=== PATIENT | female | born 1950 | race Caucasian/White ===

== ENCOUNTER → 2017-07-29 | Outpatient (CLI) | payer MEDICARE ==
[~2017-07-29] MED LIST: ADVAIR; ALBUTEROL; DARVOCET-N 1001 EAC1 PO; DILANTIN 100MG100 MG PO; ELAVIL25 MG GT; FUROSEMIDE; GLYBURIDE; LANTUS SQ; METFORMIN; NITRO DUR TOP; POTASSIUM PO; THORAZINE PO; TOVIAZ; Z GLUCOTROL PO; Z IMITREX PO; Z SEROQUEL PO; Z STARLIX PO; Z.0.CARISOPRODOL350 PO; Z.0.LASIX40 MG PO; Z.0.LISINOPRIL2.5 MG PO; Z.0.LOMOTIL TABLET1 PO; Z.0.NAPROXEN500 MG PO; Z.0.NEURONTIN300 MG PO; Z.0.PROTONIX40 MG PO; Z.0.VESICARE10 MG PO; Z.1.COLESTIPOL HCL1 PO
== END ==
LOC: CARD 10:19
PROVIDERS: ATTEND Family Medicine Adult Medicine
DX: I73.89 Other specified peripheral vascular diseases (principal)
CPT/HCPCS: 93922; 93925

== ENCOUNTER 2017-08-15 10:15 | Outpatient (RCR) | payer MEDICARE, OTHER ==
[~2017-08-15 10:15] MED LIST changes: +HYDROCODONE/APAP 5MG-325MG TAB ONE; +LIDOCAINE VISC 2% SOLN 15 ML UDC ONE; +LIDOCAINE/PRILOCAINE 2.5-2.5% KIT ONE
== END 2017-08-22 ==
LOC: WCC 10:15
PROVIDERS: ATTEND Family Medicine Adult Medicine
DX: E11.65 Type 2 diabetes mellitus with hyperglycemia (principal); S51.002A Unspecified open wound of left elbow, initial encounter; S51.802A Unspecified open wound of left forearm, initial encounter; S81.002A Unspecified open wound, left knee, initial encounter; S81.802A Unspecified open wound, left lower leg, initial encounter; S91.002A Unspecified open wound, left ankle, initial encounter; S61.401A Unspecified open wound of right hand, initial encounter; G90.09 Other idiopathic peripheral autonomic neuropathy; I73.89 Other specified peripheral vascular diseases; I10 Essential (primary) hypertension; R23.8 Other skin changes; E66.3 Overweight; F41.9 Anxiety disorder, unspecified; G47.00 Insomnia, unspecified; J44.9 Chronic obstructive pulmonary disease, unspecified; K46.9 Unspecified abdominal hernia without obstruction or gangrene; S80.869A Insect bite (nonvenomous), unspecified lower leg, initial encounter; Y92.099 Unspecified place in other non-institutional residence as the place of occurrence of the external cause

== ENCOUNTER 2017-09-10 10:06 | Outpatient (RCR) | payer MEDICARE ==
[~2017-09-10 10:06] MED LIST changes: -HYDROCODONE/APAP 5MG-325MG TAB ONE; -LIDOCAINE VISC 2% SOLN 15 ML UDC ONE; -LIDOCAINE/PRILOCAINE 2.5-2.5% KIT ONE
[2017-09-10] MEDS ORDERED: LIDOCAINE VISC 2% SOLN 15 ML UDC ONE (16:29)
== END 2017-09-21 ==
LOC: WCC 10:06
PROVIDERS: ATTEND Family Medicine Adult Medicine
DX: E11.65 Type 2 diabetes mellitus with hyperglycemia (principal); S51.002A Unspecified open wound of left elbow, initial encounter; S51.802A Unspecified open wound of left forearm, initial encounter; S81.002A Unspecified open wound, left knee, initial encounter; S81.802A Unspecified open wound, left lower leg, initial encounter; S91.002A Unspecified open wound, left ankle, initial encounter; R23.8 Other skin changes; S80.869A Insect bite (nonvenomous), unspecified lower leg, initial encounter; G90.09 Other idiopathic peripheral autonomic neuropathy; I10 Essential (primary) hypertension; I73.89 Other specified peripheral vascular diseases; E66.3 Overweight; F41.9 Anxiety disorder, unspecified; G47.00 Insomnia, unspecified; J44.9 Chronic obstructive pulmonary disease, unspecified; K46.9 Unspecified abdominal hernia without obstruction or gangrene; Y92.099 Unspecified place in other non-institutional residence as the place of occurrence of the external cause

== ENCOUNTER 2017-09-15 16:24 | Emergency (ER) | payer MEDICARE ==
[~2017-09-15] VITALS: Ht 160 cm; Wt 81.6 kg
[2017-09-15] MEDS ORDERED: IPRATROPIUM BROMIDE 0.02% 2.5 ML NEB NEB STA (16:28)
[2017-09-15] MEDS ORDERED: CLINDAMYCIN PHOS 900MG/ D5W 50 50 ML IV ONE (16:30)
[2017-09-15] MEDS ORDERED: ALBUTEROL SULF 0.083% NEB SOLN 3 ML NEB NEB ONE (17:00)
[2017-09-15] MEDS ORDERED: HYDROCODONE/APAP 10MG-325MG TAB PO ONE (17:00)
[2017-09-15] MEDS ORDERED: ONDANSETRON HCL INJ 2 MG/ML VIAL IV ONE (17:00)
--- NOTE | 2017-09-15 17:12 | Diagnostic Imaging Report ---
Examination: Single AP view of the chest. COMPARISON: 12/03/2012. INDICATION: Pain. Leg wound DISCUSSION: Lines/tubes: None. Lungs: The lungs are well inflated and clear. There is no evidence of pneumonia or pulmonary edema. Pleura: There is no pleural effusion or pneumothorax. Heart and mediastinum: Cardiomediastinal silhouette is unremarkable. Pulmonary vasculature is normal. Bones and soft tissues: No acute bony abnormalities. Degenerative changes in the thoracic spine. IMPRESSION: 1. No acute cardiopulmonary abnormalities. Signed by: Dr. Pasquale Dunbar M.D. on 09/15/2017 5:09 PM
[2017-09-15 17:37] LABS: BASOPHILS # (AUTO) 0.1 (0.0-0.1); BASOPHILS % 0.5 % (0.0-1.0); EOSINOPHILS # (AUTO) 0.1 (0.0-0.4); EOSINOPHILS % 0.4 % (0.0-6.0); HEMATOCRIT 39.2 % (34.2-44.1); HEMOGLOBIN 12.7 g/dL (12.0-16.0); LYMPHOCYTES % 17.4 % (18.0-39.1); MEAN CORPUSCULAR HEMOGLOBIN 30.9 pg (28-32); MEAN CORPUSCULAR HGB CONC 32.4 g/dL (31-35); MEAN CORPUSCULAR VOLUME 95.4 fL (81-99); MONOCYTES % 8.4 % (4.4-11.3); NEUTROPHILS # (AUTO) 8.2 (2.1-6.9); NEUTROPHILS % 72.1 % (38.7-80.0); PLATELET COUNT 260 x10e3/uL (140-360); RED BLOOD COUNT 4.11 x10e6/uL (3.6-5.1); RED CELL DISTRIBUTION WIDTH 14.2 % (11.7-14.4)
[2017-09-15 17:58] LABS: ALANINE AMINOTRANSFERASE 16 IU/L (0-55); ALBUMIN 3.7 g/dL (3.5-5.0); ALBUMIN/GLOBULIN RATIO 1.4 (0.8-2.0); ALKALINE PHOSPHATASE 49 IU/L (40-150); ANION GAP 16.4 mmol/L (8-16); BLOOD UREA NITROGEN 27 mg/dL (7-26); BUN/CREATININE RATIO 35 (6-25); CALCIUM 9.7 mg/dL (8.4-10.2); CARBON DIOXIDE 22 mmol/L (22-29); CHLORIDE 104 mmol/L (98-107); CREATININE, SERUM 0.78 mg/dL (0.57-1.11); EST GLOMERULAR FILTRATION RATE > 60 ML/MIN (60-); GLUCOSE 132 mg/dL (74-118); POTASSIUM 4.4 mmol/L (3.5-5.1); SODIUM 138 mmol/L (136-145)
[2017-09-15 18:36] LABS: BILIRUBIN,URINE NEGATIVE (NEGATIVE); CLARITY,URINE CLEAR (CLEAR); COLOR,URINE YELLOW (YELLOW); KETONES,URINE NEGATIVE (NEGATIVE); LEUKOCYTE ESTERASE ,URINE NEGATIVE (NEGATIVE); NITRITE,URINE NEGATIVE (NEGATIVE); PROTEIN,URINE DIPSTICK NEGATIVE (NEGATIVE); URINE UROBILINOGEN 0.2 mg/dL (0.2 - 1)
[2017-09-15 18:39] VITALS: BP 134/71
[2017-09-15 18:50] LABS: BACTERIA,URINE FEW /HPF; EPITHELIAL CELLS,URINE RARE /LPF; WBC,URINE (MAN) 0-5 /HPF (0-5)
== END 2017-09-15 18:30 | disposition home or self-care (01) ==
LOC: ER 16:26
DX: M79.662 Pain in left lower leg (principal); L03.116 Cellulitis of left lower limb; R26.2 Difficulty in walking, not elsewhere classified; E11.9 Type 2 diabetes mellitus without complications; J44.9 Chronic obstructive pulmonary disease, unspecified
CPT/HCPCS: 36415; 71045; 80053; 81001; 83605; 85025; 87040; 87086; 87186; 93005; 94640; 99284; J2405

== ENCOUNTER 2017-10-15 10:33 | Outpatient (RCR) | payer MEDICARE ==
[~2017-10-15 10:33] MED LIST changes: +LIDOCAINE VISC 2% SOLN 15 ML UDC ONE; +MINERAL OIL/PETROLAT/GLYCERI 6OZ BTL ONE
[2017-10-15] MEDS ORDERED: LIDOCAINE VISC 2% SOLN 15 ML UDC ONE (12:16)
== END 2017-10-22 ==
LOC: WCC 10:33
PROVIDERS: ATTEND Family Medicine Adult Medicine
DX: E11.65 Type 2 diabetes mellitus with hyperglycemia (principal); S81.002A Unspecified open wound, left knee, initial encounter; S81.802A Unspecified open wound, left lower leg, initial encounter; S80.869A Insect bite (nonvenomous), unspecified lower leg, initial encounter; G90.09 Other idiopathic peripheral autonomic neuropathy; I73.89 Other specified peripheral vascular diseases; R23.8 Other skin changes; I10 Essential (primary) hypertension; E66.3 Overweight; F41.9 Anxiety disorder, unspecified; G47.00 Insomnia, unspecified; J44.9 Chronic obstructive pulmonary disease, unspecified; K46.9 Unspecified abdominal hernia without obstruction or gangrene; Y92.099 Unspecified place in other non-institutional residence as the place of occurrence of the external cause
CPT/HCPCS: 36415; 82948

== ENCOUNTER → 2017-10-28 | Outpatient (CLI) | payer MEDICARE ==
[~2017-10-28] MED LIST changes: -LIDOCAINE VISC 2% SOLN 15 ML UDC ONE; -MINERAL OIL/PETROLAT/GLYCERI 6OZ BTL ONE
--- NOTE | 2017-10-28 11:38 | Diagnostic Imaging Report ---
PROCEDURE:X-RAY PELVIS, AP VIEW COMPARISON:None. INDICATIONS:NEUROMUSCULAR DYSFUNTION OF BLADDER FINDINGS: There are no fractures, dislocations, lytic or blastic lesions. Stimulator device overlying left lower quadrant with distal lead overlying left sacrum. Degenerative changes of hip and SI joints. Right lower quadrant calcified densities are likely soft tissue granulomas. CONCLUSION: No acute fracture or dislocation of the pelvis. Dictated by: Wilfrid Chapman M.D. on 10/28/2017 at 11:44 Electronically approved by: Wilfrid Chapman M.D. on 10/28/2017 at 11:44
--- NOTE | 2017-10-28 11:58 | Diagnostic Imaging Report ---
PROCEDURE:SACRUM X-RAY INDICATION:Neuromuscular dysfunction of bladder. COMPARISON:None. FINDINGS: Generalized demineralization limits evaluation. No definite evidence of acute displaced fracture of the sacrum. Mild degenerative changes of the SI joints. L5-S1 facet arthropathy. Stimulator device overlying left lower quadrant with tip overlying left pelvis. CONCLUSION: No evidence of acute displaced sacral fracture. Dictated by: Wilfrid Chapman M.D. on 10/28/2017 at 12:03 Electronically approved by: Wilfrid Chapman M.D. on 10/28/2017 at 12:03
== END ==
LOC: RAD 10:53
PROVIDERS: ATTEND Urology
DX: N31.9 Neuromuscular dysfunction of bladder, unspecified (principal)
CPT/HCPCS: 72170; 72220

== ENCOUNTER 2017-11-14 12:48 | Outpatient (RCR) | payer MEDICARE ==
[~2017-11-14 12:48] MED LIST changes: +LIDOCAINE/PRILOCAINE 2.5-2.5% KIT ONE
[2017-11-14] MEDS ORDERED: LIDOCAINE/PRILOCAINE 2.5-2.5% KIT ONE (18:33)
== END 2017-11-22 ==
LOC: WCC 12:48
PROVIDERS: ATTEND Family Medicine Adult Medicine
DX: E11.65 Type 2 diabetes mellitus with hyperglycemia (principal); S80.812A Abrasion, left lower leg, initial encounter; S80.869A Insect bite (nonvenomous), unspecified lower leg, initial encounter; G90.09 Other idiopathic peripheral autonomic neuropathy; I73.89 Other specified peripheral vascular diseases; R23.8 Other skin changes; I10 Essential (primary) hypertension; E66.3 Overweight; F41.9 Anxiety disorder, unspecified; G47.00 Insomnia, unspecified; J44.9 Chronic obstructive pulmonary disease, unspecified; K46.9 Unspecified abdominal hernia without obstruction or gangrene; Y92.099 Unspecified place in other non-institutional residence as the place of occurrence of the external cause

== ENCOUNTER 2017-12-19 10:21 | Outpatient (RCR) | payer MEDICARE ==
[~2017-12-19 10:21] MED LIST changes: -LIDOCAINE/PRILOCAINE 2.5-2.5% KIT ONE
[2018-02-05] MEDS ORDERED: DIVALPROEX SOD250 MG PO (11:13)
[2018-02-05] MEDS ORDERED: BACTRIM DS TAB1 EACH PO (11:14)
[2018-02-05] MEDS ORDERED: QUETIAPINE FUM100 MG PO (11:14)
[2018-02-05] MEDS ORDERED: NATEGLINIDE60 MG PO (11:15)
[2018-02-05] MEDS ORDERED: METOPROLOL SUCC25 MG PO (11:15)
[2018-02-05] MEDS ORDERED: AMBIEN5 MG PO (11:16)
[2018-02-05] MEDS ORDERED: HUMALOG100 UNIT/3 SC (11:17)
[2018-02-05] MEDS ORDERED: TRAZODONE HCL100 MG PO (11:17)
[2018-02-05] MEDS ORDERED: PRAVASTATIN SOD40 MG PO (11:20)
[2018-02-05] MEDS ORDERED: breo INH (11:25)
== END 2017-12-22 ==
LOC: WCC 10:21
PROVIDERS: ATTEND Family Medicine Adult Medicine
DX: E11.65 Type 2 diabetes mellitus with hyperglycemia (principal); S80.812A Abrasion, left lower leg, initial encounter; S80.822A Blister (nonthermal), left lower leg, initial encounter; E66.3 Overweight; F41.9 Anxiety disorder, unspecified; G47.00 Insomnia, unspecified; G90.09 Other idiopathic peripheral autonomic neuropathy; I10 Essential (primary) hypertension; I73.89 Other specified peripheral vascular diseases; J44.9 Chronic obstructive pulmonary disease, unspecified; K46.9 Unspecified abdominal hernia without obstruction or gangrene; R23.8 Other skin changes; S80.869A Insect bite (nonvenomous), unspecified lower leg, initial encounter; Y92.099 Unspecified place in other non-institutional residence as the place of occurrence of the external cause

== ENCOUNTER → 2018-02-07 | Day surgery (SDC) | payer MEDICARE ==
[2018-02-05 11:43] LABS: BASOPHILS # (AUTO) 0.1 (0.0-0.1); BASOPHILS % 0.6 % (0.0-1.0); EOSINOPHILS % 0.3 % (0.0-6.0); HEMATOCRIT 44.3 % (34.2-44.1); HEMOGLOBIN 14.4 g/dL (12.0-16.0); LYMPHOCYTES # (AUTO) 2.5 (1.0-3.2); LYMPHOCYTES % 20.8 % (18.0-39.1); MEAN CORPUSCULAR HEMOGLOBIN 30.9 pg (28-32); MEAN CORPUSCULAR HGB CONC 32.5 g/dL (31-35); MEAN CORPUSCULAR VOLUME 95.1 fL (81-99); MONOCYTES # (AUTO) 0.9 (0.2-0.8); MONOCYTES % 7.9 % (4.4-11.3); NEUTROPHILS # (AUTO) 8.1 (2.1-6.9); PLATELET COUNT 259 x10e3/uL (140-360); RED BLOOD COUNT 4.66 x10e6/uL (3.6-5.1); RED CELL DISTRIBUTION WIDTH 12.8 % (11.7-14.4)
[2018-02-05 12:03] LABS: BLOOD UREA NITROGEN 16 mg/dL (7-26); BUN/CREATININE RATIO 22 (6-25); CALCIUM 9.4 mg/dL (8.4-10.2); CARBON DIOXIDE 20 mmol/L (22-29); CHLORIDE 100 mmol/L (98-107); CREATININE, SERUM 0.73 mg/dL (0.57-1.11); EST GLOMERULAR FILTRATION RATE > 60 ML/MIN (60-); GLUCOSE 150 mg/dL (74-118); SODIUM 137 mmol/L (136-145)
--- NOTE | 2018-02-05 12:09 | Diagnostic Imaging Report ---
EXAMINATION: PA and lateral views of the chest. COMPARISON: 09/15/2017 CLINICAL HISTORY: Preoperative study for urologic procedure DISCUSSION: The lungs remain well-inflated. No focal airspace consolidation, pleural effusion, or pneumothorax. Cardiomediastinal contour and pulmonary vasculature are within normal limits except and of atherosclerotic calcification of the thoracic aorta. Normal heart size. No overt pulmonary edema. No acute osseous abnormality. IMPRESSION: No acute cardiopulmonary abnormalities. Signed by: Dr. Jay Jay Burnham M.D. on 02/05/2018 12:05 PM
[~2018-02-07] MED LIST changes: +AMBIEN5 MG PO; +BACTRIM DS TAB1 EACH PO; +BUPIVACAINE 0.5%/EPI 30 ML SDV INJ ONE; +CLINDAMYCIN PHOS 900MG/ 50ML 50 ML IV ONE; +DEXAMETHASONE SOD PHOS INJ 4 MG/ML VIAL ONE; +DIVALPROEX SOD250 MG PO; +FENTANYL CITRATE/PF 100MCG/2 ML INJ ONE; +HUMALOG100 UNIT/3 SC; +LIDOCAINE 2%/ EPINEPHRINE 20ML MDV ONE; +LIDOCAINE HCL 2% LOCAL INJ 5 ML SDV VIAL INJ ONE; +METOPROLOL SUCC25 MG PO; +MIDAZOLAM HCL 2 MG/2 ML VIAL ONE; +NATEGLINIDE60 MG PO; +ONDANSETRON HCL INJ 2 MG/ML VIAL ONE; +PIPER-TAZ 3.375 GM 50 ML ONE; +PRAVASTATIN SOD40 MG PO; +PROPOFOL IV EMULSION 10 MG/ML 20 ML VIAL ONE; +QUETIAPINE FUM100 MG PO; +SEVOFLURANE INHAL SOLN 250 ML PEN BTL ONE; +TRAZODONE HCL100 MG PO; +breo INH
--- OUTSIDE RECORDS SUMMARY | 2018-02-07 08:50 | XMS REPORT | Clinical Summary ---
Author Author [facility] Address Unknown Phone Unavailable Care Team Providers Care Service Or Work Dispatcher Name Role Phone Asked, No Pcp PCP Unavailable Allergies Comments Active Allergy Reactions Severity Noted Date Penicillins 10/01/2016 Medications No known medications Active Problems Not on file Social History Date Tobacco Use Types Packs/Day Years Used Never Smoker Alcohol Use Drinks/Week oz/Week Comments No Sex Assigned at Date Recorded Not on file Industry Job Start Date Occupation Not on file Not on file Not on file Travel End Travel History Travel Start No recent travel history available. Last Filed Vital Signs Not on file Plan of Treatment Not on file Results Not on fileafter 02/06/2017 Insurance Payer Benefit Subscriber ID Type Phone Address Plan / Group [employer] C[employer] xxxxxxxxx H[employer] NG O MCR ADV Advance Directives Patient has advance care planning documents on file. For more information, wayne combs contact: Montrell Limon [address] [place] [address]
--- OUTSIDE RECORDS SUMMARY | 2018-02-07 08:50 | XMS REPORT ---
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 Allergies, Adverse Reactions, Alerts This patient has no known allergies or adverse reactions. Medications This patient has no known medications. Results Test Description Test Time Test Comments Text Results Atomic Results Result Comments CHEST 2 VIEWS 2018-02-05 12:04:00 [facility] [address] [address] Patient Name: HIRAL WILSON MR #: [id number] : 1950 Age/Sex: 67/F Req #: [id number] Adm Physician: Ordered by: RAHEL ROSS MD Report #: [id number] Location: OR Room/Bed: Procedure: [id number] DX/CHEST 2 VIEWS Exam Date: Exam Time: REPORT STATUS: Signed EXAMINATION: PA and lateral views of the chest. COMPARISON: 09/15/2017 CLINICAL HISTORY: Preoperative study for urologic procedure DISCUSSION: The lungs remain well-inflated. No focal airspace consolidation, pleural effusion, or pneumothorax. Cardiomediastinal contour and pulmonary vasculature are within normal limits except and of atherosclerotic calcification of the thoracic aorta. Normal heart size. No overt pulmonary edema. No acute osseous abnormality. IMPRESSION: No acute cardiopulmonary abnormalities. Signed by: Dr. Heidy Sheth M.D. on 02/05/2018 12:05 PM Dictated By: HEIDY SHETH MD Electro nically Signed By: HEIDY SHETH MD on 02/05/181204 Transcribed By: NYASIA on 02/05/181204 COPY TO: RAHEL ROSS MD SACRUM X-RAY 2017-10-28 12:03:[address] [address] Patient Name: HIRAL WILSON MR #: [id number] : 1950 Age/Sex: 67/F Req #: [id number] Adm Physician: Ordered by: RAHEL ROSS MD Report #: [id number] Location: [facility] Room/Bed: Procedure: [id number] DX/SACRUM X-RAY Exam Date: 10/28/17 Exam Time: 1115 REPORT STATUS: Signed PROCEDURE: SACRUM X-RAY INDICATION: Neuromuscular dysfunction of bladder. COMPARISON: None. FINDINGS: Generalized demineralization limits evaluation. No definite evidence of acute displaced fracture of the sacrum. Mild degenerative changes of the SI joints. L5-S1 facet arthropathy. Stimulator device overlying left lower quadrant with tip overlying left pelvis. CONCLUSION: No evidence of acute displaced sacral fracture. Dictated by: Wilfrid Ryder M.D. on 10/28/2017 at 12:03 Electronically approved by: Wilfrid Ryder M.D. on 10/28/2017 at 12:03 Dictated By: WILFRID RYDER MD 02 Transcribed By: YVES on 10/28/171202 COPY TO: RAHEL ROSS MD PELVIS AP 1-2 VIEWS 2017-10-28 11:44:00 [facility] [address] [address] Patient Name: HIRAL WILSON MR #: [id number] : 1950 Age/Sex: 67/F Req #: [id number] Adm Physician: Ordered by: RAHEL ROSS MD Report #: [id number] Location: [facility] Room/Bed: Procedure: [id number] DX/PELVIS AP 1-2 VIEWS Exam Date: 10/28/17 Exam Time: 1115 REPORT STATUS: Signed PROCEDURE: X-RAY PELVIS, AP VIEW COMPARISON: None. INDICATIONS: NEUROMUSCULAR DYSFUNTION OF BLADDER FINDINGS: There are no fractures, dislocations, lytic or blastic lesions. Stimulator device overlying left lower quadrant with distal lead overlying left sacrum. Degenerative changes of hip and SI joints. Right lower quadrant calcified densities are likely soft tissue granulomas. CONCLUSION: No acute fracture or dislocation of the pelvis. Dictated by: Wilfrid Ryder M.D. on 10/28/2017 at 11:44 Electronically approved by: Wilfrid Ryder M.D. on 10/28/2017 at 11:44 Dictated By: WILFRID RYDER MD 1144 Transcribed By: YVES on 10/28/17 1144 COPY TO: RAHEL ROSS MD CHEST SINGLE (PORTABLE) 2017-09-15 17:00:[id number] [address] Patient Name: HIRAL WILSON MR #: [id number] : 1950 Age/Sex: 67/F Req #: [id number] Adm Physician: Ordered by: [place] ALANIS TRAPEZE ARTIST Report #: [id number] Location: ER Room/Bed: Procedure: [id number] DX/CHEST SINGLE (PORTABLE) Exam Date: 09/15/17 Exam Time: 1630 REPORT STATUS: Signed Examination: Single AP view of the chest. COMPARISON: 12/03/2012. INDICATION: Pain. Leg wound DISCUSSION: Lines/tubes: None. Lungs: The lungs are well inflated and clear. There is no evidence of pne umonia or pulmonary edema. Pleura: There is no pleural effusion or pneumothorax. Heart and mediastinum: Cardiomediastinal silhouette is unremarkable. Pulmonary vasculature is normal. Bones and soft tissues: No acute bony abnormalities. Degenerative changes in the thoracic spine. IMPRESSION: 1. No acute cardiopulmonary abnormalities. Signed by: Dr. Pasquale Lynn M.D. on 09/15/2017 5:09 PM Dictated By: BRIONNA LYNN MD, MD 08 Transcribed By: NYASIA on 09/15/171708 COPY TO: GE[place] ALANIS TRAPEZE ARTIST
[2018-02-07 13:15] VITALS: BP 168/81
--- NOTE | 2018-02-08 05:19 | Operative Report ---
DATE OF PROCEDURE: February 07, 2018 PREOPERATIVE DIAGNOSIS: Refractory urge incontinence. POSTOPERATIVE DIAGNOSIS: Refractory urge incontinence. OPERATIONS PERFORMED 1. Replacement of InterStim neurostimulator. 2. Electronic analysis and complex programming. 3. Supervision of fluoroscopy, no radiologist present. ANESTHESIA: General. COMPLICATIONS: None. CLINICAL SUMMARY: Leona Ewing is a 67-year-old woman with a complex history. The patient has had multiple back injuries. She has refractory urge incontinence which is helped traumatically by the InterStim utilizing it on top of her anticholinergic medications. The patient has had an InterStim in for quite some time and her batteries ran out. We plan to evaluate the existing lead prior to potentially changing it. She is aware of the risks of bleeding, infection, injury to adjacent structures, need for additional procedures and she elected to proceed. She understands she has a permanent implant that has limited battery life and will require surgical procedure to replace it. OPERATIVE PROCEDURE IN DETAIL: Informed consent was verified. Leona Ewing was properly identified and taken to the operating room where anesthesia was uneventfully begun. The patient was then carefully and gently repositioned in prone position with all pressure points carefully well padded. Pillows were placed under the pelvis to flatten out the sacrum. The C-arm was brought into place and placed a needle into the foramen. The patient's back and buttocks were prepared and draped in the usual sterile fashion. We made an incision overlying the pulse generator header. We isolated the pocket and we made an incision over the existing pulse generator and carried the incision through all layers of the abdominal wall. We identified the neurostimulator and removed it. There was a hard, plastic-like scar tissue around the generator. This was all excised in order to accommodate the patient with a new pocket. The incision was then made overlying the pulse generator. The incision was carried through all layers of the abdominal wall. We continued the incision until we exposed the pulse generator and then we removed it from the patient. We then utilized the Hex screwdriver to undo single set screw that was holding the lead to the pulse generator header. Once we did this, we tested all 4 leads and they all responded with appropriate responses including bellowing of the anus as well as plantar flexion of the great toe. Copious irrigation was performed of the pocket and of the other incision. Marcaine, lidocaine, and epinephrine were utilized to infiltrate subcutaneously for postoperative pain control. Due to the fact that all leads were seemed to be functioning appropriately, we brought the C-arm into position and the verified that indeed lead position was satisfactory into the foramen of S3. We then utilized a new generator and after thoroughly cleansing the lead, we placed the lead into the pulse generator header and utilized a single set screw once the blue tip was visible at the tip of the pulse generator header. After copiously irrigating the pocket and excising out scar tissue, we placed the pulse generator into the pocket. We then placed the programming head over the pulse generator and verified that all impedances were in appropriate parameters. They all were accepted the most proximal lead; however, since we had such excellent responses, we felt that it would be best to just leave the existing lead and program the patient accordingly to a lead that responds appropriately. The incision was then approximated in 2 layers utilizing absorbable sutures. Mastisol, Steri-Strips and bio-occlusive dressing was applied and the patient was uneventfully reversed from anesthesia and taken to the recovery room in stable condition. There were no complications to the procedure. The patient tolerated the procedure well. Sponge, needle, and instrument counts were correct x2 at the end of the case. Estimated blood loss was minimal. Explicit postoperative instructions were given. We will follow the patient up in the office. At the follow-up appointment, we will plan on being prepared to perform a check of impedance versus reprogramming. Job#: [id number] JOE
== END | disposition home or self-care (01) ==
LOC: OR 08:47
PROVIDERS: ATTEND Urology
DX: N39.46 Mixed incontinence (principal); N39.0 Urinary tract infection, site not specified; N31.9 Neuromuscular dysfunction of bladder, unspecified; N81.89 Other female genital prolapse; N36.41 Hypermobility of urethra; N95.2 Postmenopausal atrophic vaginitis; N28.1 Cyst of kidney, acquired; R81 Glycosuria; N39.44 Nocturnal enuresis; E11.9 Type 2 diabetes mellitus without complications; M19.90 Unspecified osteoarthritis, unspecified site; G40.409 Other generalized epilepsy and epileptic syndromes, not intractable, without status epilepticus; I11.0 Hypertensive heart disease with heart failure; I50.9 Heart failure, unspecified; I25.2 Old myocardial infarction; E78.5 Hyperlipidemia, unspecified; K21.9 Gastro-esophageal reflux disease without esophagitis; K58.9 Irritable bowel syndrome, unspecified; K44.9 Diaphragmatic hernia without obstruction or gangrene; R00.0 Tachycardia, unspecified; E66.9 Obesity, unspecified; M54.9 Dorsalgia, unspecified; J44.9 Chronic obstructive pulmonary disease, unspecified; F17.210 Nicotine dependence, cigarettes, uncomplicated; F41.9 Anxiety disorder, unspecified; F31.9 Bipolar disorder, unspecified; Z88.6 Allergy status to analgesic agent; Z88.1 Allergy status to other antibiotic agents; Z88.0 Allergy status to penicillin; Z88.8 Allergy status to other drugs, medicaments and biological substances; Z91.048 Other nonmedicinal substance allergy status; Z01.810 Encounter for preprocedural cardiovascular examination; Z01.812 Encounter for preprocedural laboratory examination; Z01.818 Encounter for other preprocedural examination; Z79.4 Long term (current) use of insulin; Z68.33 Body mass index [BMI] 33.0-33.9, adult; Z87.01 Personal history of pneumonia (recurrent)
CPT/HCPCS: 36415 ×2; 64590; 71046; 76000; 80048; 82948; 85025; 88300; 88302; 93005; 95972; C1787; J1100; J2001 ×2; J2250; J2405; J2543; J2704; L8679; L8696

== ENCOUNTER → 2018-06-03 | Outpatient (CLI) | payer MEDICARE ==
[~2018-06-03] MED LIST changes: -BUPIVACAINE 0.5%/EPI 30 ML SDV INJ ONE; -CLINDAMYCIN PHOS 900MG/ 50ML 50 ML IV ONE; -DEXAMETHASONE SOD PHOS INJ 4 MG/ML VIAL ONE; -FENTANYL CITRATE/PF 100MCG/2 ML INJ ONE; -LIDOCAINE 2%/ EPINEPHRINE 20ML MDV ONE; -LIDOCAINE HCL 2% LOCAL INJ 5 ML SDV VIAL INJ ONE; -MIDAZOLAM HCL 2 MG/2 ML VIAL ONE; -ONDANSETRON HCL INJ 2 MG/ML VIAL ONE; -PIPER-TAZ 3.375 GM 50 ML ONE; -PROPOFOL IV EMULSION 10 MG/ML 20 ML VIAL ONE; -SEVOFLURANE INHAL SOLN 250 ML PEN BTL ONE
--- NOTE | 2018-06-03 11:48 | Diagnostic Imaging Report ---
EXAM: Lumbar spine radiographs-3 views; sacral radiographs-2 views INDICATION: Mechanical complication of urinary electronic stimulator. COMPARISON: None FINDINGS: There is a partially seen left-sided urinary stimulator lead which terminates overlying the left hemisacrum. The visualized lead is intact without evidence of discontinuity. Radiographs of the lumbar spine demonstrate diffuse osteopenia and mild degenerative disc and facet degenerative changes in the lower lumbar spine. The sacrum is unremarkable in appearance. No evidence of acute fracture or malalignment. Extensive atherosclerotic vascular calcifications. IMPRESSION: No acute osseous abnormality. Partially seen left-sided urinary stimulator with visualized lead intact. Signed by: Dr. Anitha Mcnamara MD on 06/03/2018 11:45 AM
== END ==
LOC: RAD 09:33
PROVIDERS: ATTEND Urology
DX: N39.41 Urge incontinence (principal)
CPT/HCPCS: 72100; 72220

== ENCOUNTER → 2018-06-17 | Outpatient (CLI) | payer MEDICARE ==
--- NOTE | 2018-06-17 12:06 | Diagnostic Imaging Report ---
LUMBAR SPINE - 3 Images SACRUM - 2 Images HISTORY: Complications of genitourinary prosthetic device, implant COMPARISON: Lumbar spine and sacrum from June 03, 2018 FINDINGS: Orientation of the lateral projections is slightly different than the comparison, which limits direct comparison. Bones and joints: 5 nonrib-bearing lumbar-type vertebral bodies. The alignment of the lumbar spine is within normal limits. The disc spaces are well-maintained. Multilevel facet arthrosis, most notably moderate at L5-S1. No acute displaced fracture or aggressive osseous lesion. Partially visualized right hip hemiarthroplasty. Soft tissues: A left implanted electronic device with a single lead. The visualized portions of the leads appear intact. The lead appears to traverse the sacrum at the level of S3-4 on the left. The tip of the lead projecting within the dorsal aspect of the left hemipelvis. Diffuse scattered atherosclerotic vascular calcifications. IMPRESSION: 1. Left implanted electronic device with intact radiopaque lead. 2. No acute radiographic abnormality. 3. Atherosclerosis with borderline increased size of the distal infrarenal abdominal aorta, recommend correlation with abdominal aortic ultrasound for further evaluation. Signed by: Dr. Rao Carlos D.O., M.M.M. on 06/17/2018 12:02 PM
== END ==
LOC: RAD 10:24
PROVIDERS: ATTEND Urology
DX: T83.190A Other mechanical complication of urinary electronic stimulator device, initial encounter (principal)
CPT/HCPCS: 72100; 72220

== ENCOUNTER 2019-11-03 19:33 | Inpatient (IN) | payer MEDICARE ==
[~2019-11-03] VITALS: Ht 160 cm; Wt 81.6 kg
[2019-11-03] MEDS ORDERED: DEXTROSE 50% SYRINGE 50 ML IV ONE (19:58)
[2019-11-03] MEDS ORDERED: DEXTROSE 50% SYRINGE 50 ML IV STA (20:13)
[2019-11-03 20:24] LABS: BASOPHILS % 0.5 % (0.0-1.0); EOSINOPHILS # (AUTO) 0.1 (0.0-0.4); EOSINOPHILS % 0.9 % (0.0-6.0); HEMOGLOBIN 9.6 g/dL (12.0-16.0); LYMPHOCYTES # (AUTO) 1.4 (1.0-3.2); LYMPHOCYTES % 16.2 % (18.0-39.1); MEAN CORPUSCULAR HEMOGLOBIN 22.8 pg (28-32); MEAN CORPUSCULAR HGB CONC 28.2 g/dL (31-35); MEAN CORPUSCULAR VOLUME 80.8 fL (81-99); MONOCYTES # (AUTO) 0.8 (0.2-0.8); MONOCYTES % 8.7 % (4.4-11.3); NEUTROPHILS # (AUTO) 6.4 (2.1-6.9); NEUTROPHILS % 73.1 % (38.7-80.0); PLATELET COUNT 310 x10e3/uL (140-360); RED BLOOD COUNT 4.21 x10e6/uL (3.6-5.1); RED CELL DISTRIBUTION WIDTH 15.9 % (11.7-14.4)
[2019-11-03 20:41] LABS: ALBUMIN 3.4 g/dL (3.5-5.0); ALBUMIN/GLOBULIN RATIO 1.1 (0.8-2.0); ANION GAP 11.9 mmol/L (8-16); CALCIUM 9.4 mg/dL (8.4-10.2); CREATININE, SERUM 1.18 mg/dL (0.57-1.11); POTASSIUM 4.9 mmol/L (3.5-5.1)
[2019-11-03 20:47] LABS: CREATINE KINASE MB 2.2 ng/mL (0-5.0)
[2019-11-03] MEDS ORDERED: SODIUM CHLORIDE 0.9% 1000ML 1,000 ML IV ONE (21:00)
--- NOTE | 2019-11-03 21:12 | Emergency Department Note ---
History of Present Illnes History of Present Illness Chief Complaint: Abdominal Complaints History of Present Illness This is a 69 year old female arrived to the ED generalized malaise weakness nausea and vomiting for about one month.. Chief Complaint Comment X 4 WEEKS DIARRHEA, N/V. POOR APPETITE AND SHE HAS BEEN REFUSING TO GO TO THE DOCTOR PATIENT ON HOME OXYGEN 4L/NC. LIVES ALONE. WHEELCHAIR BOUND. 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 Any updates have been documented here. Past Medical History Recent Fever: No Clinical Suspicion of Infectio: No New/Unexplained Change in Ment: No Past Medical History: Hypertension, Diabetes, COPD, CAD Other Surgery: BOWEL OBSTRUCTION Social History Counseling Performed: No Alcohol Use: Social Physically hurt or threatened: No Other Last Tetanus: UTD Review of Systems Review of Systems Constitutional: Reports no symptoms EENTM: Reports no symptoms Cardiovascular: Reports no symptoms Respiratory: Reports as per HPI Gastrointestinal: Reports no symptoms Genitourinary: Reports no symptoms Musculoskeletal: Reports no symptoms Integumentary: Reports no symptoms Neurological: Reports no symptoms Psychological: Reports no symptoms Endocrine: Reports no symptoms Hematological/Lymphatic: Reports no symptoms Review of other systems: All other systems negative Physical Exam Related Data Allergies: Coded Allergies: adhesive tape (Verified Allergy, Intermediate, BREAKS OUT, SKIN RASH, 11/03/19) doxepin (Verified Allergy, Mild, 02/26/09) Triage Vital Signs Vital Signs Date Time Temp Pulse Resp B/P (MAP) Pulse Ox O2 Delivery O2 Flow Rate FiO2 11/03/19 19:40 98.7 76 20 120/53 100 Nasal Cannula 4.0 Vital signs reviewed: Yes Physical Exam CONSTITUTIONAL Constitutional: Present well-developed, Present well-nourished, Present ill appearing HENT HENT: Present normocephalic, Present atraumatic, Present oropharynx cl ear/moist, Present nose normal HENT L/R: Present left ext ear normal, Present right ext ear normal EYES Eyes: Reports PERRL, Reports conjunctivae normal NECK Neck: Present ROM normal PULMONARY Pulmonary: Present effort normal, Present breath sounds normal CARDIOVASCULAR Cardiovascular: Present regular rhythm, Present heart sounds normal, Present capillary refill normal, Present normal rate GASTROINTESTINAL Abdominal: Present soft, Present nontender, Present bowel sounds normal GENITOURINARY Genitourinary: Present exam deferred SKIN Skin: Present warm, Present dry MUSCULOSKELETAL Musculoskeletal: Present ROM normal NEUROLOGICAL Neurological: Present no gross motor or sensory deficits PSYCHOLOGICAL Psychological: Present mood/affect normal, Present judgement normal Results Laboratory Result Diagram: 11/03/19201411/03/192014 Laboratory Laboratory Tests Test 11/03/19 20:49 11/03/19 20:15 Bedside Glucose 135 mg/dL (70-120) White Blood Count 8.78 x10e3/uL (4.8-10.8) Red Blood Count 4.21 x10e6/uL (3.6-5.1) Hemoglobin 9.6 g/dL (12.0-16.0) Hematocrit 34.0 % (34.2-44.1) Mean Corpuscular Volume 80.8 fL (81-99) Mean Corpuscular Hemoglobin 22.8 pg (28-32) Mean Corpuscular Hemoglobin Concent 28.2 g/dL (31-35) Red Cell Distribution Width 15.9 % (11.7-14.4) Platelet Count 310 x10e3/uL (140-360) Neutrophils (%) (Auto) 73.1 % (38.7-80.0) Lymphocytes (%) (Auto) 16.2 % (18.0-39.1) Monocytes (%) (Auto) 8.7 % (4.4-11.3) Eosinophils (%) (Auto) 0.9 % (0.0-6.0) Basophils (%) (Auto) 0.5 % (0.0-1.0) Neutrophils # (Auto) 6.4 (2.1-6.9) Lymphocytes # (Auto) 1.4 (1.0-3.2) Monocytes # (Auto) 0.8 (0.2-0.8) Eosinophils # (Auto) 0.1 (0.0-0.4) Basophils # (Auto) 0.0 (0.0-0.1) Absolute Immature Granulocyte (auto 0.05 x10e3/uL (0-0.1) Sodium Level 137 mmol/L (136-145) Potassium Level 4.9 mmol/L (3.5-5.1) Chloride Level 99 mmol/L (98-107) Carbon Dioxide Level 31 mmol/L (22-29) Anion Gap 11.9 mmol/L (8-16) Blood Urea Nitrogen 31 mg/dL (7-26) Creatinine 1.18 mg/dL (0.57-1.11) Estimat Glomerular Filtration Rate 46 ML/MIN (60-) BUN/Creatinine Ratio 26 (6-25) Glucose Level 53 mg/dL (74-118) Calcium Level 9.4 mg/dL (8.4-10.2) Total Bilirubin 0.2 mg/dL (0.2-1.2) Aspartate Amino Transf (AST/SGOT) 21 IU/L (5-34) Alanine Aminotransferase (ALT/SGPT) 19 IU/L (0-55) Alkaline Phosphatase 39 IU/L (40-150) Creatine Kinase 61 IU/L (29-168) Creatine Kinase MB 2.20 ng/mL (0-5.0) Troponin I 0.007 ng/mL (0-0.300) Total Protein 6.5 g/dL (6.5-8.1) Albumin 3.4 g/dL (3.5-5.0) Globulin 3.1 g/dL (2.3-3.5) Albumin/Globulin Ratio 1.1 (0.8-2.0) Lipase 11 U/L (8-78) Lab results reviewed: Yes Imaging Imaging results reviewed: Yes Assessment & Plan Medical Decision Making MDM 69-year-old female arrives to the ED with complaints of generalized malaise weakness, marked bilateral pedal edema noted. Patient's chest x-ray concerning for pneumonia noted at 2345 Patient treated for severe sepsis at 2345, blood cultures and lactic acid obtained, broad-spectrum antibiotics given Lactic acid #1 negative, no indication for repeat Assessment & Plan Final Impression: (1) Severe sepsis (2) Pneumonia (3) Duodenitis Depart Disposition: HOME, SELF-CARE Last Vital Signs Date Time Temp Pulse Resp B/P (MAP) Pulse Ox O2 Delivery O2 Flow Rate FiO2 11/03/19 20:14 71 22 100 Nasal Cannula 2.0 11/03/19 19:40 98.7 Home Meds Reported Medications [breo] No Conflict Check, 2 INH INH DAILY 02/05/18 Pravastatin Sodium (PRAVASTATIN SODIUM) 40 Mg Tablet, 40 MG PO HS 02/05/18 Trazodone Hcl (TRAZODONE HCL) 100 Mg Tablet, 100 MG PO HS 02/05/18 Insulin Lispro (HUMALOG) 100 Unit/1 Ml Insuln.pen, 18 U SC TID 02/05/18 Zolpidem Tartrate (AMBIEN) 5 Mg Tablet, 5 MG PO HS, #30 TAB 02/05/18 Metoprolol Succinate (METOPROLOL SUCCINATE) 25 Mg Tab.er.24h, 12.5 MG PO BID 02/05/18 Nateglinide (NATEGLINIDE) 60 Mg Tablet, 60 MG PO HS 02/05/18 Sulfamethoxazole/Trimethoprim (BACTRIM DS TABLET) 1 Each Tablet, 1 TAB PO DAILY, #60 TAB 02/05/18 Divalproex Sodium (DIVALPROEX SODIUM) 250 Mg Tablet.dr, 250 MG PO BID 02/05/18 Quetiapine Fumarate (Seroquel) 400 Mg Tablet, 100 MG PO HS 10/04/11 Pantoprazole Sodium (Protonix) 40 Mg Tablet.dr, 40 MG PO HS 10/04/11 Lisinopril (Lisinopril) 2.5 Mg Tablet, 2.5 MG PO HS 10/04/11 [Lantus 20U] No Conflict Check, 18 UNIT SQ QHS, 0 Refills 10/04/11 [Albuterol] No Conflict Check, PRN 10/04/11 Medications in the ED Dextrose 50 ml STK-MED ONCE IV ; Start 11/03/19 at 19:58; Stop 11/03/19 at 19:52; Status DC Dextrose 50 ml NOW STAT IV Last administered on 11/03/19at 20:16; Admin Dose 50 ML; Start 11/03/19 at 20:13; Stop 11/03/19 at 20:15; Status DC Sodium Chloride 1,000 ml @ 0 mls/hr Q0M ONCE IV Last administered on 11/03/19at 20:59; Admin Dose 999 MLS/HR; Start 11/03/19 at 21:00; Stop 11/03/19 at 21:01; Status DC WILLIAM CRUZ, Nov 03, 2019 21:12
[2019-11-03 22:22] LABS: BILIRUBIN,URINE NEGATIVE (NEGATIVE); CLARITY,URINE CLEAR (CLEAR); COLOR,URINE YELLOW (YELLOW); KETONES,URINE NEGATIVE (NEGATIVE); LEUKOCYTE ESTERASE ,URINE NEGATIVE (NEGATIVE); NITRITE,URINE POSITIVE (NEGATIVE); PROTEIN,URINE DIPSTICK NEGATIVE (NEGATIVE); URINE UROBILINOGEN 0.2 mg/dL (0.2 - 1)
[2019-11-03 22:31] LABS: BACTERIA,URINE MANY /HPF; EPITHELIAL CELLS,URINE FEW /LPF; RBC,URINE 0-5 /HPF (0-5)
[2019-11-03] MEDS ORDERED: SODIUM CHLORIDE 0.9% 50ML 50 ML ONE (22:38)
[2019-11-03] MEDS ORDERED: IOPAMIDOL 370 MG/ML 200 ML INFUS..BTL INJ ONE (22:38)
--- NOTE | 2019-11-03 22:55 | Diagnostic Imaging Report ---
EXAM: CT Abdomen and Pelvis WITH contrast INDICATION: ^Y ^ABD PAIN ^[id number] ^[id number] COMPARISON: None. TECHNIQUE: Abdomen and pelvis were scanned utilizing a multidetector helical scanner from the lung base to the pubic symphysis after administration of IV contrast. Coronal and sagittal reformations were obtained. Dose modulation, iterative reconstruction, and/or weight based adjustment of the mA/kV was utilized to reduce the radiation dose to as low as reasonably achievable. Routine protocol was performed. Scan was performed when during portal venous phase. IV CONTRAST: 100 mL of Isovue-370 ORAL CONTRAST: Water COMPLICATIONS: None RADIATION DOSE: Total DLP: 738.12 mGy*cm Estimated effective dose: (DLP x 0.015 x size factor) mSv CTDIvol has been reviewed. It is below the limits set by the Radiation Protocol Committee (RPC). FINDINGS: LINES and TUBES: Spine stimulator within left posterior back soft tissues. LOWER THORAX: Mitral valve calcifications. Partially seen emphysematous changes of the lungs. HEPATOBILIARY: No focal hepatic lesions. Mild biliary ductal dilation. GALLBLADDER: Not visualized. Correlate with surgical history. SPLEEN: No splenomegaly. PANCREAS: Fatty involution. No focal masses or ductal dilatation. ADRENALS: No adrenal nodules KIDNEYS/URETERS: Kidneys enhance symmetrically. No hydronephrosis. 1.9 cm left renal inferior pole exophytic cyst. Posterior right renal mid to superior pole scarring. No stones. GI TRACT: No abnormal distention, wall thickening, or evidence of bowel obstruction. Few scattered colonic diverticula without evidence of diverticulitis. Appendix is not clearly visualized. Minimal fat stranding/edema adjacent to the second portion of duodenum. PELVIC ORGANS/BLADDER: Hysterectomy. Bladder is unremarkable. LYMPH NODES: No lymphadenopathy. VESSELS: There is severe atherosclerotic disease in the aorta and major arterial branches. Focally ectatic infrarenal abdominal aorta measuring 2.8 cm (2/45). Additional suprarenal ectatic area measuring 2.6 cm. Severe stenosis of the left common iliac artery. Markedly diminutive left external iliac artery. Femorofemoral graft stent in place. PERITONEUM / RETROPERITONEUM: No free air or fluid. BONES: Right hip prosthesis with streak artifacts. Anterior left ninth and 10th rib old mild fracture deformities. SOFT TISSUES: Small fat-containing periumbilical hernias. IMPRESSION: 1. Minimal fat stranding/edema, adjacent to the second portion of the duodenum, could represent duodenitis in the appropriate clinical context. Otherwise, no acute inflammatory process in the abdomen/pelvis. 2. Severe aortoiliac atherosclerotic disease as detailed above. 3. Mild biliary dilatation, likely due to reservoir effect, if there is history of cholecystectomy. Signed by: Dr. Wilfrid Chapman MD on 11/03/2019 10:52 PM
[2019-11-03] MEDS ORDERED: SODIUM CHLORIDE 0.9% 1000ML 1,000 ML IV SCH (23:15)
--- NOTE | 2019-11-03 23:48 | Diagnostic Imaging Report ---
EXAMINATION: CHEST SINGLE (PORTABLE) INDICATION: ^Y ^WHEEZING ^[id number] ^[id number] COMPARISON: 02/05/2018 FINDINGS: AP view TUBES and LINES: None. LUNGS: Limited by body habitus. Lungs are well inflated. Pulmonary vascular congestion and mild additional edema. PLEURA: No pleural effusion or pneumothorax. HEART AND MEDIASTINUM: The cardiomediastinal silhouette is unremarkable. Aorta is mildly tortuous and calcified. BONES AND SOFT TISSUES: No acute osseous lesion. Soft tissues are unremarkable. UPPER ABDOMEN: No free air under the diaphragm. IMPRESSION: Pulmonary vascular congestion and mild additional edema. Underlying pneumonia, especially in left mid to lower lung field cannot be excluded in the appropriate clinical context. Signed by: Dr. Wilfrid Chapman MD on 11/03/2019 11:44 PM
[2019-11-03] MEDS ORDERED: CEFEPIME HCL 1 GM VIAL IV STA (23:54)
[2019-11-04] VITALS (9 sets, daily range): BP systolic 96–151; BP diastolic 50–95
[2019-11-04] MEDS ORDERED: AZITHROMYCIN 500MG/NS 250 ML 250 ML IV ONE
[2019-11-04] MEDS ORDERED: CEFEPIME 1GM/NS 0.9% 50 ML 50 ML IV SCH (00:45)
[2019-11-04] MEDS: FAMOTIDINE 20 MG/2 ML VIAL IV SCH ×3 (00:49→16:49)
[2019-11-04] MEDS ORDERED: CEFEPIME 1GM/NS 0.9% 50 ML 50 ML IV ONE (00:50)
[2019-11-04] MEDS ORDERED: FUROSEMIDE INJ 10 MG/ML 4 ML VIAL IV ONE (01:00)
[2019-11-04 06:56] LABS: BASOPHILS % 0.5 % (0.0-1.0); EOSINOPHILS # (AUTO) 0.1 (0.0-0.4); EOSINOPHILS % 1.7 % (0.0-6.0); HEMATOCRIT 31.9 % (34.2-44.1); LYMPHOCYTES # (AUTO) 1.1 (1.0-3.2); LYMPHOCYTES % 18.4 % (18.0-39.1); MEAN CORPUSCULAR HGB CONC 28.2 g/dL (31-35); MEAN CORPUSCULAR VOLUME 81.4 fL (81-99); MONOCYTES # (AUTO) 0.6 (0.2-0.8); MONOCYTES % 10.6 % (4.4-11.3); NEUTROPHILS # (AUTO) 4.1 (2.1-6.9); NEUTROPHILS % 68.6 % (38.7-80.0); PLATELET COUNT 259 x10e3/uL (140-360); RED BLOOD COUNT 3.92 x10e6/uL (3.6-5.1); RED CELL DISTRIBUTION WIDTH 15.9 % (11.7-14.4)
--- NOTE | 2019-11-04 06:58 | NUR ---
H&P cc; diarrhea HPI; 69yoF, our clinic patient, developed watery diarrhea about 4 epi/day, for past 2 weeks; asked by friend to go to hospital, as nausea/vomiting has also been worsening; Past Medical History: 1.Diabetic Neuropathy 2.DM2 3. Hiatal hernias 4. Mild MDD 5. AUSTEN 6. COPD 7. CAD (PCI but no stent) 8. CHronic pain syndrome 9. Nicotine dependence in remission/FOrmer smoker 10. Urinary incontinence 11. Osteoporosis 12. Hypertension Heart Disease 13.Insomnia 14.Epilepsy 15.PAD 16.Chronic Systolic CHF 17.Obesity 18.Atherosclerotic Heart disease 19.Peripheral edema 20.Chronic respiratory failure 21.Onychomycosis of toenails 22.Gait dysfunction 23.GERD RESOLVED.Groin cellulitis- RESOLVED RESOLVED- Polyneuropathy-RESOLVED RESOLVED- ESBL Klebsiella UTI 02/2018- RESOLVED RESOLVED- Sepsis- RESOLVED RESOLVED- PILI- RESOLVED RESOLVD- Right Heel Decubitus Ulcer- RESOLVED RESOLVED- Morbid Obesity- RESOLVED RESOLVED- Right tibia/fibula fx s/p sx repair- RESOLVED RESOLVED- Acute Respiratory Failure- RESOLVED. RESOLVED- Thrombocytopenia- RESOLVD RESOLVED- Essential Thrombocytopenia- RESOLVED RESOLVED-Chronic angina-RESOLVED RESOLVED- Acute respiratory failure- RESOLVEDRESOLVED-Morbid obesity- now obese RESOLVED RESOLVEDButtock Pressure stage 1 Decubitus ulcer- RESOLVED RESOLVED Left foreleg skin tear- RESOLVED RESOLVED Groin infection B/L- RESOLVED Past Surgical History: Right hip fx (2015); Right arm fx (); Gall bladder, Hsterectomy (1978), Bladder simulator (left hip). ALlergies; see emr FH/SH; continues to smoke; no illicits; meds; see MAR ROS: no f/c/s/HIGGINS/cp/sob/skin rash/cough/confusion/vision changes/HIGGINS/focal limb weakness v/s; revd PE tired appearing anicteric ns1s2 mod bs soft nt nd TRACE LEG EDEA skin dry flat affect a&ox3; smith labs/meds revd A/P: Acute bacterial diarrhea- IV flagyl Duodenitis- flagyl/cefepime Pili- hold aceI UTI- IV cefepime AAA- 2.8 and 2.6cm- f/u outpt. DM2- check hba1c/lipids CAD- cont home meds; no stent in past AUSTEN- cont home meds COPD- O2 prn CHronic pain syndrome- cont home meds Nicotine dependence in remission/FOrmer smoker- f/u outpt; nicotine patch 14mg PAD- cont statin/ASA CHr Systolic CHF- near euvolemia; mildly overloaded; Hypertensive heart ds- cont home meds Epilepsy- Physical deconditioning- PT Prop: scd dispo: monitor; f/u COVID testing BALAJI VASQUEZ MD, PHD.
[2019-11-04] MEDS ORDERED: ZOLPIDEM TARTRATE 5 MG TAB PO PRN (07:00)
[2019-11-04 07:21] LABS: ALBUMIN 3.2 g/dL (3.5-5.0); ALBUMIN/GLOBULIN RATIO 1.1 (0.8-2.0); ANION GAP 12.5 mmol/L (8-16); CALCIUM 8.9 mg/dL (8.4-10.2); CREATININE, SERUM 0.97 mg/dL (0.57-1.11); POTASSIUM 4.5 mmol/L (3.5-5.1)
[2019-11-04 07:37] LABS: ANISOCYTOSIS SLIGHT; ELLIPTOCYTE, RBC SLIGHT; OVALOCYTES FEW; RBC MORPHOLOGY COMMENT NORMAL
[2019-11-04 07:38] LABS: HYPOCHROMASIA SLIGHT; PLATELET ESTIMATE ADEQUATE; PLATELET MORPHOLOGY COMMENT NORMAL
[2019-11-04 07:52] LABS: CREATINE KINASE MB 2.1 ng/mL (0-5.0)
--- NOTE | 2019-11-04 07:57 | NUR ---
ASSUMED CARE. AWAKE AND ALERT. ACYANOTIC. RESTING IN BED. NO DISTRESS NOTED. CALL LIGHT IN REACH. SIDE RAILS UP X2. BED LOW AND LOCKED.
[2019-11-04] MEDS: INSULIN LISPRO 100 UNIT/1 ML 3ML VIAL SQ SCH ×3 (08:00→18:29)
[2019-11-04] MEDS: DIVALPROEX SODIUM 250 MG TAB...DR PO SCH ×2 (08:23→16:49)
[2019-11-04] MEDS: METRONIDAZOLE 500MG/NS 100ML 100 ML IV SCH ×3 (08:24→23:00)
[2019-11-04] MEDS: METOPROLOL SUCCINATE 25 MG TAB XL PO SCH ×2 (08:24→16:49)
[2019-11-04] MEDS: ACETAMINOPHEN 325 MG TAB PO PRN ×2 (09:30→23:42)
[2019-11-04] MEDS: CEFEPIME 1GM/NS 0.9% 50 ML 50 ML IV SCH ×2 (09:30→21:22)
--- NOTE | 2019-11-04 11:41 | NUR ---
RECEIVED REPORT FROM PADMA VELASQUEZ.-PATIENT ARRIVED TO THE UNIT VIA BED @ 1150. PATIENT IN STABLE CONDITION, NO S/S OF DISTRESS NOTED. TELEMETRY APPLIED. BED ALARM APPLIED. BED IN LOWEST POSITION AND LOCKED, SIDE RAILS X 2. CALL LIGHT WITHIN REACH.
--- NOTE | 2019-11-04 12:01 | NUR ---
PATIENT TRANSFERRED FROM UNIT TO BED 177 AT APPROXIMATELY 1141. REPORT RECEIVED BY KARI Nowak RN. PATIENT AAOX3. ACYANOTIC. O2 AT 4L NC. BED LOW AND LOCKED. SIDE RAILS UP X2. CALL LIGHT IN REACH.
[2019-11-04] MEDS ORDERED: METRONIDAZOLE 500MG/NS 100ML 100 ML IV SCH (14:00)
[2019-11-04 15:15] LABS: CHOL/HDL RATIO 2.7 (3.0-3.6)
[2019-11-04] MEDS ORDERED: SODIUM CHLORIDE 0.9% 250ML 250 ML ONE ×2 (15:37→20:24)
--- NOTE | 2019-11-04 19:11 | NUR ---
COMPLETED SHIFT REPORT WITH ONCOMING NIGHT NURSE. PATIENT IN STABLE CONDITION, NO S/S OF DISTRESS NOTED. TELEMETRY APPLIED. OXYGEN 4 LPM/NC APPLIED. BED ALARM APPLIED. BED IN LOWEST POSITION AND LOCKED, SIDE RAILS X 2. CALL LIGHT WITHIN REACH.
[2019-11-04] MEDS: PRAVASTATIN 20 MG TAB PO SCH (20:27)
[2019-11-04] MEDS: QUETIAPINE FUMARATE 100 MG TAB PO SCH (20:27)
[2019-11-04] MEDS ORDERED: INSULIN GLARGINE 100 UNITS/ML VIAL SQ SCH (21:00)
[2019-11-04] MEDS ORDERED: PANTOPRAZOLE SOD 40 MG TABEC PO SCH (21:00)
[2019-11-04] MEDS: TRAZODONE HCL 50 MG TAB PO SCH (21:22)
--- NOTE | 2019-11-04 23:00 | NUR ---
SPOKE WITH DR. MILES. WANTS TO DO EGD TOMORROW. WILL SEE PATIENT TONIGHT.
[2019-11-04] MEDS: ONDANSETRON HCL INJ 2MG/ML 2ML 2 MG/ML VIAL IV PRN (23:56)
[2019-11-05] VITALS (7 sets, daily range): BP systolic 133–161; BP diastolic 64–74
--- NOTE | 2019-11-05 00:10 | NUR ---
PATIENT MADE AWARE OF DR. MILES'S PLAN TO DO EGD. PATIENT STATES I CAN NOT DO ANY PROCEDURE BECAUSE SHE CAN'T STAND IT. DR. MILES MADE AWARE. NO NEW ORDERS.
[2019-11-05] MEDS ORDERED: PANTOPRAZOLE 40 MG 10ML VIAL IV STA (01:41)
[2019-11-05] MEDS ORDERED: SUCRALFATE 1 GM TAB PO ONE (01:45)
[2019-11-05 03:38] LABS: CREATINE KINASE 45 IU/L (29-168)
--- NOTE | 2019-11-05 06:37 | NUR ---
IM- progress note O/N see below ROS: no f/c/s/HIGGINS/cp/sob/skin rash/cough/confusion/vision changes/HIGGINS/focal limb weakness v/s; revd PE tired appearing anicteric ns1s2 mod bs soft nt nd TRACE LEG EDEA skin dry flat affect a&ox3; smith labs/meds revd A/P: Acute bacterial diarrhea- IV flagyl Duodenitis- flagyl/cefepime Pili- hold aceI UTI- IV cefepime AAA- 2.8 and 2.6cm- f/u outpt. DM2- check hba1c/lipids CAD- cont home meds; no stent in past AUSTEN- cont home meds COPD- O2 prn CHronic pain syndrome- cont home meds Nicotine dependence in remission/FOrmer smoker- f/u outpt; nicotine patch 14mg PAD- cont statin/ASA CHr Systolic CHF- near euvolemia; mildly overloaded; Hypertensive heart ds- cont home meds Epilepsy- Physical deconditioning- PT Prop: scd dispo: monitor; f/u COVID testing 8-13 Hba1c/LDL 7.9/32; check renal fn; Acute resp failure- on 4L NC O2. Left PNA- cont treatment; add azithromycin for atypicals; COVID testing Negative. PT consult; SNF eval. Pt continues to smoke at home. BALAJI VASQUEZ MD, PHD.
[2019-11-05] MEDS: DIVALPROEX SODIUM 250 MG TAB...DR PO SCH ×2 (09:00→17:01)
[2019-11-05] MEDS: FAMOTIDINE 20 MG/2 ML VIAL IV SCH ×2 (09:00→17:01)
[2019-11-05] MEDS: PANTOPRAZOLE 40 MG 10ML VIAL IV SCH ×2 (09:00→21:23)
[2019-11-05] MEDS: METOPROLOL SUCCINATE 25 MG TAB XL PO SCH ×2 (09:00→17:01)
[2019-11-05] MEDS: SUCRALFATE 1 GM TAB PO SCH ×4 (09:08→20:54)
[2019-11-05] MEDS: INSULIN LISPRO 100 UNIT/1 ML 3ML VIAL SQ SCH ×3 (10:01→17:00)
--- NOTE | 2019-11-05 10:51 | NUR ---
SPOKE WITH PATIENT THROUGH DOOR SHE STATES THAT THE EMERGENCY CONTACT HIRAL REYNOSO IS HER PROVIDER. SHE IS ALERT AND ORIENTED X 3 AND CAN MAKE HER OWN DECISIONS AT THIS POINT. I ASKED HER IF SHE IS UNABLE TO MAKE DECISIONS AT ANY POINT WHOM IS TO MAKE THEM SHE STATES HER PROVIDER. ASKED HER ABOUT SNF SHE STATES IN NETWORK AND CLOSE TO HOME, AGREED TO FOCUSED CARE NICHOLAS. PRINTED CLINICALS AND WILL FAX TO [facility].
--- NOTE | 2019-11-05 14:06 | NUR ---
PATIENT TRANSFERRED TO ROOM 294. REPORT WAS CALLED @ 1235. PATIENT STABLE , NO S/S OF DISTRESS NOTED. OXYGEN 4 LPM/NC. TELEMETRY APPLIED. PATIENT TOLERATED TRANSPORT.
--- NOTE | 2019-11-05 16:01 | Diagnostic Imaging Report ---
EXAMINATION: CHEST XRAY LINE PLACEMENT INDICATION: Line placement COMPARISON: Chest radiograph 11/03/2019 FINDINGS: LINES/TUBES:Interval placement of right PICC line with tip in the SVC. EKG leads overlie the chest. LUNGS:The lungs are well-inflated. No focal consolidation or pulmonary edema. PLEURA:No pleural effusion or pneumothorax. MEDIASTINUM:The cardiomediastinal silhouette appears normal in size and shape. BONES/SOFT TISSUES:No acute osseous injury. ABDOMEN:No free air under the diaphragm. IMPRESSION: Right PICC line terminates in the SVC. Signed by: Jamarcus Garcia MD on 11/05/2019 3:57 PM
[2019-11-05] MEDS: CEFEPIME 1GM/NS 0.9% 50 ML 50 ML IV SCH (17:00)
[2019-11-05] MEDS: NICOTINE 14 MG/EA PATCH TOP SCH (17:00)
[2019-11-05 17:52] LABS: BLOOD UREA NITROGEN 11 mg/dL (7-26); BUN/CREATININE RATIO 16 (6-25); CALCIUM 8.2 mg/dL (8.4-10.2); CARBON DIOXIDE 33 mmol/L (22-29); CHLORIDE 110 mmol/L (98-107); EST GLOMERULAR FILTRATION RATE > 60 ML/MIN (60-); SODIUM 143 mmol/L (136-145)
[2019-11-05 17:56] LABS: GLUCOSE 49 mg/dL (74-118)
[2019-11-05] MEDS: METRONIDAZOLE 500MG/NS 100ML 100 ML IV SCH (18:00)
[2019-11-05] MEDS ORDERED: DEXTROSE 50% SYRINGE 50 ML IV ONE (18:25)
--- NOTE | 2019-11-05 19:35 | NUR ---
Patient visited in room during nursing rounds. Patient alert and oriented x2. Pt on bed rest at this time. PICC on right upper arm. No c/o abdominal pain at this time. Pt on scheduled IV antibiotics. Will monitor closely.Call bello within reach.
[2019-11-05] MEDS ORDERED: INSULIN GLARGINE 100 UNITS/ML VIAL SQ SCH (21:00)
[2019-11-05] MEDS: QUETIAPINE FUMARATE 100 MG TAB PO SCH (21:00)
[2019-11-05] MEDS: TRAZODONE HCL 50 MG TAB PO SCH (21:00)
[2019-11-05] MEDS: PRAVASTATIN 20 MG TAB PO SCH (21:00)
--- NOTE | 2019-11-05 21:00 | NUR ---
Patient c/o feeling she needs to vomit and spit. Pt given Zofran 4mg IV and Protonix 40 mg IV. Pt took Carafate 1 tab but refused the rest of her scheduled night medications (Desyrel, Seroquel, Pravastatin). Finger BS check and it was 90 which was a drop from 117 as 1999. Will call and notify Dr. Mccarthy.
--- NOTE | 2019-11-05 21:16 | NUR ---
Spoke with Dr. Mccarthy over phone and informed about patient's nauseated event and her blood glucose that had dropped from 117 to 90. MD aware and ordered to discontinue all insulin orders and keep monitoring pt.
[2019-11-05] MEDS ORDERED: DEXTROSE 50% SYRINGE 50 ML IV PRN (21:30)
--- NOTE | 2019-11-05 22:00 | NUR ---
Patient had a bowel movement and linens and diaper were changed. Es care done on pt. Patient repositioned in bed. Purewick also applied. Pt stated she felt better.
--- NOTE | 2019-11-05 23:00 | NUR ---
Dr. Licha Brewer came and visited pt in room. MD noticed pt confused (alert and oriented x1). Patient also had pulled out her PICC line on right upper arm. PICC site covered with gauze and cleaned. V/S checked: BP = 122/81, HR = 91, T = 97.9 F, O2 sat = 100% on 2L NC. Fingerstick blood glucose was 96. Pt kept apologizing for pulling out PICC line. Will notify Dr. Mccarthy.
--- NOTE | 2019-11-05 23:13 | NUR ---
Spoke with Dr. Mccarthy over the phone and notified of patient's confused state and that patient had pulled out her PICC line. MD aware and re-ordered for new PICC placement and also for a sitter as needed. Guest Request Runner (Makenna Sung) and CN (Guera Davis) were notified about need for PICC. Radiology called and will call on-call PICC nurse to come to the hospital to place new PICC line.
[2019-11-06] VITALS (7 sets, daily range): BP systolic 109–168; BP diastolic 67–86
[2019-11-06] MEDS: METRONIDAZOLE 500MG/NS 100ML 100 ML IV SCH ×3 (02:30→17:00)
--- NOTE | 2019-11-06 03:25 | NUR ---
PICC nurse arrived and in patient's room about to place PICC line on patient's arm per MD order.
--- NOTE | 2019-11-06 04:05 | NUR ---
Portable CXR in progress to check for PICC placement on left upper arm.
[2019-11-06] MEDS: CEFEPIME 1GM/NS 0.9% 50 ML 50 ML IV SCH ×2 (05:00→16:17)
--- NOTE | 2019-11-06 05:10 | Diagnostic Imaging Report ---
EXAMINATION: CHEST XRAY LINE PLACEMENT INDICATION: ^check for PICC placement ^[id number] ^0400 COMPARISON: 11/05/2019 FINDINGS: AP view TUBES and LINES: Left PICC in place with tip projecting over inferior SVC. Interval removal of previously seen right PICC. LUNGS: Limited by body habitus. Lungs are well inflated. Central vascular congestion and suspected mild images show edema. PLEURA: No pleural effusion or pneumothorax. HEART AND MEDIASTINUM: The cardiomediastinal silhouette is unremarkable. BONES AND SOFT TISSUES: No acute osseous lesion. Soft tissues are unremarkable. UPPER ABDOMEN: No free air under the diaphragm. IMPRESSION: Left PICC in place with tip projecting over inferior SVC. No visible pneumothorax. Central vascular congestion and suspected mild interstitial edema. Signed by: Dr. Wilfrid Chapman MD on 11/06/2019 5:07 AM
--- NOTE | 2019-11-06 05:14 | NUR ---
PICC is in inferior SVC per radiology report by Dr Chapman. PICC is okay to use
--- NOTE | 2019-11-06 06:44 | NUR ---
IM- progress note O/N see below ROS: no f/c/s/HIGGINS/cp/sob/skin rash/cough/confusion/vision changes/HIGGINS/focal limb weakness v/s; revd PE tired appearing anicteric ns1s2 mod bs soft nt nd TRACE LEG EDEA skin dry flat affect a&ox3; smith labs/meds revd A/P: Acute bacterial diarrhea- IV flagyl Duodenitis- flagyl/cefepime Pili- hold aceI UTI- IV cefepime AAA- 2.8 and 2.6cm- f/u outpt. DM2- check hba1c/lipids CAD- cont home meds; no stent in past AUSTEN- cont home meds COPD- O2 prn CHronic pain syndrome- cont home meds Nicotine dependence in remission/FOrmer smoker- f/u outpt; nicotine patch 14mg PAD- cont statin/ASA CHr Systolic CHF- near euvolemia; mildly overloaded; Hypertensive heart ds- cont home meds Epilepsy- Physical deconditioning- PT Prop: scd dispo: monitor; f/u COVID testing 8-13 Hba1c/LDL 7.9/32; check renal fn; Acute resp failure- on 4L NC O2. Left PNA- cont treatment; add azithromycin for atypicals; COVID testing Negative. PT consult; SNF eval. Pt continues to smoke at home. 8-14 check labs; cont care; Hypoglycemia- all insulin stopped; reduced mind altering meds due to AMS/NENITA. BALAJI VASQUEZ MD, PHD.
[2019-11-06 06:48] LABS: FERRITIN 24.18 ng/mL (4.63-204.00)
[2019-11-06 06:52] LABS: BASOPHILS % 0.3 % (0.0-1.0); EOSINOPHILS # (AUTO) 0.1 (0.0-0.4); EOSINOPHILS % 0.5 % (0.0-6.0); HEMATOCRIT 33.6 % (34.2-44.1); HEMOGLOBIN 9.3 g/dL (12.0-16.0); LYMPHOCYTES # (AUTO) 0.7 (1.0-3.2); LYMPHOCYTES % 7.3 % (18.0-39.1); MEAN CORPUSCULAR HEMOGLOBIN 22.9 pg (28-32); MEAN CORPUSCULAR HGB CONC 27.7 g/dL (31-35); MEAN CORPUSCULAR VOLUME 82.8 fL (81-99); MONOCYTES # (AUTO) 0.6 (0.2-0.8); MONOCYTES % 6.2 % (4.4-11.3); NEUTROPHILS % 85.1 % (38.7-80.0); PLATELET COUNT 316 x10e3/uL (140-360); RED BLOOD COUNT 4.06 x10e6/uL (3.6-5.1)
--- NOTE | 2019-11-06 07:00 | NUR ---
BEDSIDE SHIFT REPORT RECEIVED FROM THE PM TECHNICIAN RN. PT IS AAOX 1 AND CONFUSED PER THE REPORT.CALL LIGHT WITH IN EASY REACH. BED IS LOW AND LOCKED. SIDE RAILS X2. ALL SAFETY MEASURES IN PLACE. PT DENIES NEEDS AT THIS TIME.
--- NOTE | 2019-11-06 07:01 | NUR ---
BED ALARM IS ON.
--- NOTE | 2019-11-06 07:20 | NUR ---
TELEMETRY REPORTED AFIB FOR THE PT. PAGED DR. VASQUEZ AND REPORTED THE SAME.
--- NOTE | 2019-11-06 07:21 | NUR ---
PAGED EKG REGARDING STAT EKG ORDER
[2019-11-06 07:28] LABS: ANION GAP 13.4 mmol/L (8-16); BLOOD UREA NITROGEN 9 mg/dL (7-26); BUN/CREATININE RATIO 13 (6-25); CALCIUM 9.3 mg/dL (8.4-10.2); CARBON DIOXIDE 35 mmol/L (22-29); CHLORIDE 101 mmol/L (98-107); CREATININE, SERUM 0.67 mg/dL (0.57-1.11); EST GLOMERULAR FILTRATION RATE > 60 ML/MIN (60-); GLUCOSE 119 mg/dL (74-118); POTASSIUM 4.4 mmol/L (3.5-5.1); SODIUM 145 mmol/L (136-145)
--- NOTE | 2019-11-06 07:38 | NUR ---
AFIV WITH RVR PER EKG. PAGED DR. VASQUEZ AND REPORTED THE SAME.
[2019-11-06] MEDS: METOPROLOL SUCCINATE 25 MG TAB XL PO SCH (07:50)
[2019-11-06 07:59] LABS: PHOSPHORUS 2.3 MG/DL (2.3-4.7)
[2019-11-06] MEDS: SUCRALFATE 1 GM TAB PO SCH ×4 (08:03→19:43)
[2019-11-06] MEDS: DIVALPROEX SODIUM 250 MG TAB...DR PO SCH ×2 (08:03→16:17)
[2019-11-06] MEDS: PANTOPRAZOLE 40 MG 10ML VIAL IV SCH ×2 (08:14→19:43)
[2019-11-06] MEDS: FAMOTIDINE 20 MG/2 ML VIAL IV SCH ×2 (08:14→16:17)
[2019-11-06] MEDS: NICOTINE 14 MG/EA PATCH TOP SCH (08:14)
--- NOTE | 2019-11-06 08:30 | NUR ---
PAGED DR. VASQUEZ AND REPORTED PT BLOOD SUGAR 150.
[2019-11-06 10:35] LABS: C DIFFICILE TOXIN A&B AMP PROB NEGATIVE (NEGATIVE)
[2019-11-06 10:50] LABS: WBC,FECAL (FECAL LACTOFERRIN) NEGATIVE (NEGATIVE)
--- NOTE | 2019-11-06 11:30 | NUR ---
PAGED DR. VASQUEZ AND REPORTED PT BLOOD SUGAR 163.
--- NOTE | 2019-11-06 11:31 | NUR ---
SNF WAS DENIED, OFFERED PEER TO PEER GAVE DR CHRISTINA SORIANO AND LET HIM KNOW THEY WILL BE CALLING HIM.
--- NOTE | 2019-11-06 13:56 | NUR ---
REMINDED BUILDING PT IS ON 2 IV ABX, SHE STATES WILL RESUBMIT. AND SEE WHAT DAYCARE WORKER SAYS.
[2019-11-06] MEDS: ACETAMINOPHEN 325 MG TAB PO PRN (14:42)
--- NOTE | 2019-11-06 14:46 | Consultation ---
DATE OF CONSULTATION: 11/06/2019 Cardiology Consult Note REASON FOR CONSULT: Atrial fibrillation with RVR, new onset. CHIEF COMPLAINT: Abdominal discomfort and diarrhea. HISTORY OF PRESENT ILLNESS: The patient is a 69-year-old female who presented to the hospital with watery diarrhea for the past two weeks, was found to have duodenitis and was started on treatment for this, was noted to have episode of atrial fibrillation with RVR this morning that lasted about 2-3 hours. The patient denies any chest pain, shortness of breath. She is lying flat in bed comfortably, has chronic lower extremity edema. REVIEW OF SYSTEMS: As per HPI, otherwise negative. PAST MEDICAL HISTORY: Includes diabetes, COPD, long history of smoking, coronary artery disease reported with no history of stent, chronic pain, osteoporosis, hypertension, epilepsy, peripheral arterial disease, chronic systolic congestive heart failure. SOCIAL HISTORY: The patient is a long-time smoker. Does not drink or abuse drugs. FAMILY HISTORY: Noncontributory. OUTPATIENT MEDICATIONS: Reviewed. ALLERGIES: ALLERGIC TO DOXEPIN AND TAPE. OBJECTIVE: VITAL SIGNS: Temperature afebrile, pulse 130, respiratory rate 22, blood pressure 109/84, saturating 100% on nasal cannula. GENERAL: Elderly female, well developed, well nourished, no acute distress. CARDIOVASCULAR: Irregular rate and rhythm. No murmurs, rubs, or gallops. LUNGS: Clear to auscultation anteriorly. ABDOMEN: Soft, nontender, nondistended. NEURO AND PSYCH: Alert and oriented to person, place, and time. Normal affect. INPATIENT MEDICATIONS: Reviewed. LABORATORY DATA: Reviewed, notable for hemoglobin of 9.3. Troponins negative x3. BNP of 173. GFR is 46. On admission, improved to greater than 60, currently with fluid resuscitation. IMAGING DATA: Reviewed. Chest x-ray shows some mild pulmonary vascular congestion. Abdomen and pelvis CT shows duodenitis and severe arthrosclerosis. ASSESSMENT: 1. Atrial fibrillation with rapid ventricular response. 2. History of coronary artery disease. 3. History of peripheral arterial disease. 4. Reported history of chronic systolic congestive heart failure. PLAN: We will start the patient on beta blockers and titrate as tolerated. We will also start her on Xarelto 20 mg for stroke prophylaxis. We will need to be monitored closely for any bleeding given chronic anemia. We will obtain echocardiogram to evaluate LV function and valvular function. Thank you for this consult. We will continue to follow. MD ISRA Judge/ANNY /[id number]
--- NOTE | 2019-11-06 15:38 | NUR ---
CORRECTION FACILITY DISCHARGE INFORMATION PATIENT HAS BEEN ACCEPTED TO: NAME: [facility] ADDRESS: [id number] [place] [address] ACCEPTING TALENT DEVELOPMENT CONSULTANT: DOREEN FELIX ACCEPTING MD:CHRISTINA ROOM: 406B NURSE CALL REPORT TO: [phone] IMM SIGNED AND OBTAINED (if applicable): IMM THE FOLLOWING DOCUMENTS MUST ACCOMPANY PATIENT FOR TRANSFER: COPIED CHART: PACKET
--- NOTE | 2019-11-06 15:54 | NUR ---
PAGED DR. JON REGARDING PT TRANSFER TO SNF. WAITING FOR THE RESPONSE FROM THE
--- NOTE | 2019-11-06 15:58 | NUR ---
PAGED ECHO. WAITING FOR THE RESPONSE
--- NOTE | 2019-11-06 16:00 | NUR ---
INFORMED SERVICE ELECTRICIAN REGARDING ECHO FOR THE PT.
--- NOTE | 2019-11-06 16:21 | NUR ---
DUE QUARANTINE SCHEDULES IF PT DOES NOT GO TO FACILITY TONIGHT BY MIDNIGHT PT WILL NOT BE ALLOWED TO ENTER OVER THE WEEKEND, WILL HAVE TO WAIT AND GET APPROVAL ON SATURDAY. LET CM, NURSE AND KNOW.
--- NOTE | 2019-11-06 16:34 | NUR ---
TRANSFER PT TO SNF TODAY PER DR. VASQUEZ. INFORMED DR. VASQUEZ REGARDING PT ECHO PENDING AND CARDIAC CLEARANCE. DISCHARGE PT AND TRANSFER TO SNF PER THE
[2019-11-06] MEDS ORDERED: RIVAROXABAN 20 MG TABLET PO SCH (17:00)
[2019-11-06] MEDS ORDERED: METOPROLOL TARTRATE 25 MG TAB PO SCH (17:00)
--- NOTE | 2019-11-06 17:10 | NUR ---
PAGED FOCUSSED CARE OF HARDY. TRANSFER REPORT GIVEN TO DIANA VICENTE LVN.
--- NOTE | 2019-11-06 17:15 | NUR ---
OKAY TO CALL [facility] TO TRANSFER THE PT PER PT CONTACT HIRAL REYNOSO.
--- NOTE | 2019-11-06 17:50 | NUR ---
PT PULLED OUT RIGHT WRIST 20 G IV. TIP INTACT. DRESSING APPLIED. PT DENIED FURTHER NEEDS.
--- NOTE | 2019-11-06 19:00 | NUR ---
BEDSIDE SHIFT REPORT GIVEN TO THE EXPANDING MACHINE OPERATOR RN. PT IS WAITING FOR EMS TO LABEL SEWER THE PT TO SNF. PT DENIED FURTHER NEEDS.
[2019-11-06] MEDS: PRAVASTATIN 20 MG TAB PO SCH (19:43)
[2019-11-06] MEDS: QUETIAPINE FUMARATE 100 MG TAB PO SCH (19:43)
[2019-11-06] MEDS: ONDANSETRON HCL INJ 2MG/ML 2ML 2 MG/ML VIAL IV PRN (19:51)
[2019-11-06] MEDS ORDERED: TRAZODONE HCL 50 MG TAB PO SCH (21:00)
--- NOTE | 2019-11-07 12:39 | NUR ---
D/C summary Principal Dx: Acute bacterial diarrhea- IV flagyl Duodenitis- flagyl/cefepime Pili- hold aceI UTI- IV cefepime AAA- 2.8 and 2.6cm- f/u outpt. Physical deconditioning AMS/NENITA Left PNA- IV abx New A.fib with RVR- AC and BB Secondary Dx: DM2- check hba1c/lipids CAD- cont home meds; no stent in past AUSTEN- cont home meds COPD- O2 prn CHronic pain syndrome- cont home meds Nicotine dependence in remission/FOrmer smoker- f/u outpt; nicotine patch 14mg PAD- cont statin/ASA CHr Systolic CHF- near euvolemia; mildly overloaded; Hypertensive heart ds- cont home meds Epilepsy- Physical deconditioning- PT Prop: scd dispo: monitor; f/u COVID testing 8-13 Hba1c/LDL 7.9/32; check renal fn; Acute resp failure- on 4L NC O2. Left PNA- cont treatment; add azithromycin for atypicals; COVID testing Negative. PT consult; SNF eval. Pt continues to smoke at home. 8-14 check labs; cont care; Hypoglycemia- all insulin stopped; reduced mind altering meds due to AMS/NENITA. d/c to SNF stable d/c >35mins f/u pcp 1 week; Outpt Echo BALAJI VASQUEZ MD, PHD.
== END 2019-11-06 20:59 | DRG 193 ==
LOC: ER 19:37 → ERHOLD 23:40 → MED/SURG3 11-04 02:51 → IMCU 11-04 11:50 → OBSVTOIN 11-05 09:33 → MED/SURG3 11-05 14:16
PROVIDERS: ADMIT Internal Medicine; ATTEND Internal Medicine
PROC: 02HV33Z Insertion of Infusion Device into Superior Vena Cava, Percutaneous Approach (ICD-10-PCS; principal; 2019-11-05)
PROC: B548ZZA Ultrasonography of Superior Vena Cava, Guidance (ICD-10-PCS; 2019-11-05)
PROC: 02HV33Z Insertion of Infusion Device into Superior Vena Cava, Percutaneous Approach (ICD-10-PCS; 2019-11-06)
PROC: B548ZZA Ultrasonography of Superior Vena Cava, Guidance (ICD-10-PCS; 2019-11-06)
DX: J18.9 Pneumonia, unspecified organism (principal); J96.00 Acute respiratory failure, unspecified whether with hypoxia or hypercapnia; I50.23 Acute on chronic systolic (congestive) heart failure; A09 Infectious gastroenteritis and colitis, unspecified; N17.9 Acute kidney failure, unspecified; N39.0 Urinary tract infection, site not specified; K29.80 Duodenitis without bleeding; I11.0 Hypertensive heart disease with heart failure; J44.9 Chronic obstructive pulmonary disease, unspecified; I25.10 Atherosclerotic heart disease of native coronary artery without angina pectoris; E11.42 Type 2 diabetes mellitus with diabetic polyneuropathy; K44.9 Diaphragmatic hernia without obstruction or gangrene; F32.9 Major depressive disorder, single episode, unspecified; M81.0 Age-related osteoporosis without current pathological fracture; G89.4 Chronic pain syndrome; Z99.3 Dependence on wheelchair; Z98.61 Coronary angioplasty status; Z87.891 Personal history of nicotine dependence; Z88.8 Allergy status to other drugs, medicaments and biological substances; Z91.048 Other nonmedicinal substance allergy status; I71.4 Abdominal aortic aneurysm, without rupture; I73.9 Peripheral vascular disease, unspecified; G40.909 Epilepsy, unspecified, not intractable, without status epilepticus; Z11.59 Encounter for screening for other viral diseases; E11.649 Type 2 diabetes mellitus with hypoglycemia without coma; I48.91 Unspecified atrial fibrillation; Z79.4 Long term (current) use of insulin
CPT/HCPCS: 36415; 36569; 71045; 74177; 80048; 80053; 80061; 81001; 82550; 82553; 82607; 82728; 82746; 82948; 83036; 83540; 83605; 83630; 83690; 83735; 83880; 84100; 84466; 84484; 85025; 85045; 87040; 87045; 87177; 87493; 93005; 97139; 99284; G0378; J0456; J0692; J1940; J2405; J7030; J7050; J7799; Q9967; U0002

== ENCOUNTER 2020-04-04 07:59 | Inpatient (IN) | payer MEDICARE ==
[~2020-04-04] VITALS: Ht 160 cm; Wt 81.6 kg
[2020-04-04] MEDS ORDERED: DEXAMETHASONE SOD PHOS 10 MG/1 ML VIAL IV ONE ×2 (08:15→09:45)
[2020-04-04] MEDS ORDERED: ALBUTEROL/IPRATROPIUM 3 ML NEB NEB PRN (08:23)
[2020-04-04] MEDS ORDERED: ASPIRIN81 MG PO (08:34)
[2020-04-04] MEDS ORDERED: BREO ELLIPTA 11 EACH INH (08:34)
[2020-04-04] MEDS ORDERED: PLAVIX75 MG PO (08:34)
[2020-04-04] MEDS ORDERED: LASIX20 MG PO (08:34)
[2020-04-04] MEDS ORDERED: PROVENTIL HFA6.7 GM INH (08:34)
[2020-04-04] MEDS ORDERED: HUMALOG100 UNIT/1 SQ (08:34)
[2020-04-04] MEDS ORDERED: VESICARE5 MG PO (08:34)
[2020-04-04] MEDS ORDERED: LANTUS 3ML100 UNITS/ SQ (08:34)
[2020-04-04 10:33] LABS: BASOPHILS % 0.3 % (0.0-1.0); EOSINOPHILS % 0.3 % (0.0-6.0); HEMATOCRIT 25.4 % (34.2-44.1); LYMPHOCYTES # (AUTO) 1.2 (1.0-3.2); LYMPHOCYTES % 13.5 % (18.0-39.1); MEAN CORPUSCULAR HEMOGLOBIN 21.5 pg (28-32); MEAN CORPUSCULAR HGB CONC 27.2 g/dL (31-35); MEAN CORPUSCULAR VOLUME 79.1 fL (81-99); MONOCYTES # (AUTO) 0.7 (0.2-0.8); MONOCYTES % 8.1 % (4.4-11.3); NEUTROPHILS # (AUTO) 6.7 (2.1-6.9); NEUTROPHILS % 74.8 % (38.7-80.0); PLATELET COUNT 412 x10e3/uL (140-360); RED BLOOD COUNT 3.21 x10e6/uL (3.6-5.1); RED CELL DISTRIBUTION WIDTH 18.3 % (11.7-14.4)
[2020-04-04 10:35] LABS: HEMOGLOBIN 6.9 g/dL (12.0-16.0)
[2020-04-04 11:09] LABS: ALBUMIN 2.9 g/dL (3.5-5.0); ALBUMIN/GLOBULIN RATIO 0.9 (0.8-2.0); CALCIUM 8.7 mg/dL (8.4-10.2); CREATININE, SERUM 1.16 mg/dL (0.57-1.11)
[2020-04-04 11:58] LABS: INR 0.93
[2020-04-04 11:59] LABS: PARTIAL THROMBOPLASTIN TIME 27.7 seconds (23.8-35.5)
[2020-04-04 13:01] VITALS: BP 130/56
[2020-04-04] MEDS ORDERED: GUAIFENESIN/DEXTROMETHORPHAN LIQD 5 ML UDC PO PRN (13:15)
[2020-04-04] MEDS ORDERED: BENZONATATE 100 MG CAP PO PRN (13:15)
[2020-04-04] MEDS ORDERED: DEXTROSE 50% SYRINGE 50 ML IV PRN (13:15)
[2020-04-04] MEDS: INSULIN REGULAR, HUMAN 100 UNIT/1 ML 3ML VIAL SQ SCH ×3 (13:47→21:10)
[2020-04-04 14:25] LABS: HEMATOCRIT 26.7 % (34.2-44.1); HEMOGLOBIN 7.2 g/dL (12.0-16.0)
[2020-04-04 14:39] LABS: CHOL/HDL RATIO 2.7 (3.0-3.6)
[2020-04-04] MEDS ORDERED: FUROSEMIDE INJ 10 MG/ML 2 ML VIAL IV SCH (14:45)
[2020-04-04] MEDS: BENZONATATE 100 MG CAP PO SCH ×2 (14:54→21:02)
[2020-04-04 14:56] VITALS: BP 130/56
[2020-04-04 15:03] LABS: FERRITIN 82.65 ng/mL (4.63-204.00)
[2020-04-04 15:06] VITALS: BP 130/56
[2020-04-04 15:55] VITALS: BP 146/73
[2020-04-04] MEDS ORDERED: AZITHROMYCIN 250MG/NS 100 ML 100 ML IV SCH (16:00)
[2020-04-04] MEDS ORDERED: ACETAMINOPHEN 325 MG TAB PO PRN (16:15)
[2020-04-04] MEDS: DIVALPROEX SODIUM 250 MG TAB...DR PO SCH (16:44)
[2020-04-04] MEDS: TRAMADOL HCL 50 MG TAB PO PRN (16:47)
[2020-04-04] MEDS ORDERED: METOPROLOL SUCCINATE 25 MG TAB XL PO SCH (17:00)
[2020-04-04] MEDS ORDERED: SODIUM CHLORIDE 0.9% 250ML 250 ML ONE (17:31)
[2020-04-04] MEDS: FUROSEMIDE INJ 10 MG/ML 2 ML VIAL IV SCH (17:42)
[2020-04-04] MEDS: AZITHROMYCIN 250MG/NS 100 ML 100 ML IV SCH (17:42)
[2020-04-04 20:00] VITALS: BP 106/92
[2020-04-04] MEDS ORDERED: ALBUTEROL SULF 0.083% NEB SOLN 3 ML NEB NEB PRN (20:30)
[2020-04-04] MEDS: METHYLPREDNISOLONE SOD SUCC 125 MG/2ML VIAL IV SCH (20:59)
[2020-04-04 21:00] VITALS: BP 106/92
[2020-04-04] MEDS ORDERED: ACETYLCYSTEINE 20% INHAL SOLN 30 ML VIAL INH SCH (21:00)
[2020-04-04] MEDS: TRAZODONE HCL 50 MG TAB PO SCH (21:01)
[2020-04-04] MEDS: PANTOPRAZOLE SOD 40 MG TABEC PO SCH (21:01)
[2020-04-04] MEDS: CEFEPIME 1GM/NS 0.9% 50 ML 50 ML IV SCH (21:02)
[2020-04-04] MEDS: ZOLPIDEM TARTRATE 5 MG TAB PO SCH (21:07)
[2020-04-04] MEDS: GUAIFENESIN/DEXTROMETHORPHAN LIQD 5 ML UDC NG SCH (21:20)
[2020-04-05] VITALS (8 sets, daily range): BP systolic 98–147; BP diastolic 76–86
[2020-04-05] MEDS: TRAMADOL HCL 50 MG TAB PO PRN ×3 (01:20→15:55)
[2020-04-05] MEDS: FUROSEMIDE INJ 10 MG/ML 2 ML VIAL IV SCH ×2 (05:11→17:10)
[2020-04-05] MEDS: GUAIFENESIN/DEXTROMETHORPHAN LIQD 5 ML UDC NG SCH ×3 (05:11→21:30)
[2020-04-05 05:19] LABS: BASOPHILS % 0.2 % (0.0-1.0); HEMATOCRIT 26.4 % (34.2-44.1); HEMOGLOBIN 7.2 g/dL (12.0-16.0); LYMPHOCYTES # (AUTO) 0.5 (1.0-3.2); MEAN CORPUSCULAR HEMOGLOBIN 21.9 pg (28-32); MEAN CORPUSCULAR HGB CONC 27.3 g/dL (31-35); MEAN CORPUSCULAR VOLUME 80.2 fL (81-99); MONOCYTES # (AUTO) 0.3 (0.2-0.8); MONOCYTES % 3.1 % (4.4-11.3); NEUTROPHILS % 86.5 % (38.7-80.0); PLATELET COUNT 426 x10e3/uL (140-360); RED BLOOD COUNT 3.29 x10e6/uL (3.6-5.1); RED CELL DISTRIBUTION WIDTH 18.4 % (11.7-14.4)
[2020-04-05] MEDS: IPRATROPIUM BROMIDE 0.02% 2.5 ML NEB NEB SCH ×6 (05:30→23:10)
[2020-04-05 05:56] LABS: THYROID STIMULATING HORMONE 0.607 uIU/mL (0.350-4.940)
[2020-04-05 06:16] LABS: ANION GAP 13.7 mmol/L (8-16); CALCIUM 8.9 mg/dL (8.4-10.2); CREATININE, SERUM 1.06 mg/dL (0.57-1.11); POTASSIUM 4.7 mmol/L (3.5-5.1)
[2020-04-05 06:30] LABS: PHOSPHORUS 3.4 MG/DL (2.3-4.7)
[2020-04-05] MEDS ORDERED: ALPRAZOLAM 0.5 MG TAB PO PRN (07:30)
[2020-04-05] MEDS: LEVALBUTEROL HCL SOLN NEBU 1.25 MG/3 ML NEB INH PRN ×2 (07:53→14:15)
[2020-04-05] MEDS: CEFEPIME 1GM/NS 0.9% 50 ML 50 ML IV SCH ×2 (08:29→20:51)
[2020-04-05] MEDS: INSULIN REGULAR, HUMAN 100 UNIT/1 ML 3ML VIAL SQ SCH ×4 (08:30→21:00)
[2020-04-05] MEDS: LORATADINE 10 MG TAB PO SCH (08:44)
[2020-04-05] MEDS: ASPIRIN 81 MG CHEW TAB PO SCH (08:44)
[2020-04-05] MEDS: METOPROLOL SUCCINATE 25 MG TAB XL PO SCH ×2 (08:44→16:09)
[2020-04-05] MEDS: DIVALPROEX SODIUM 250 MG TAB...DR PO SCH ×2 (08:44→16:09)
[2020-04-05] MEDS: BENZONATATE 100 MG CAP PO SCH ×3 (08:44→20:51)
[2020-04-05] MEDS: CYANOCOBALAMIN 1,000 MCG TAB PO SCH (08:45)
[2020-04-05] MEDS: METHYLPREDNISOLONE SOD SUCC 125 MG/2ML VIAL IV SCH ×2 (08:50→20:51)
[2020-04-05] MEDS: CLOPIDOGREL BISULFATE 75 MG TAB PO SCH (08:50)
[2020-04-05] MEDS: ACETYLCYSTEINE 200 MG/ML 4ML VIAL INH SCH ×3 (09:00→18:45)
[2020-04-05] MEDS: SODIUM FERRIC GLUCONATE COMPLX 125 MG in SODIUM CHLORIDE 0.9% 100 ML 100 ML IV SCH (09:09)
[2020-04-05] MEDS: AZITHROMYCIN 250MG/NS 100 ML 100 ML IV SCH (17:10)
[2020-04-05] MEDS: NIFEDIPINE CR 30 MG TAB PO SCH (20:51)
[2020-04-05] MEDS: PANTOPRAZOLE SOD 40 MG TABEC PO SCH (20:51)
[2020-04-05] MEDS: ZOLPIDEM TARTRATE 5 MG TAB PO SCH (20:51)
[2020-04-05] MEDS: TRAZODONE HCL 50 MG TAB PO SCH (20:51)
[2020-04-06] VITALS (8 sets, daily range): BP systolic 89–132; BP diastolic 71–88
[2020-04-06] MEDS: FUROSEMIDE INJ 10 MG/ML 2 ML VIAL IV SCH ×2 (05:36→17:07)
[2020-04-06] MEDS: GUAIFENESIN/DEXTROMETHORPHAN LIQD 5 ML UDC NG SCH ×3 (05:37→21:48)
[2020-04-06] MEDS: IPRATROPIUM BROMIDE 0.02% 2.5 ML NEB NEB SCH ×5 (07:25→23:00)
[2020-04-06] MEDS: ACETYLCYSTEINE 200 MG/ML 4ML VIAL INH SCH ×2 (07:25→20:30)
[2020-04-06] MEDS: INSULIN REGULAR, HUMAN 100 UNIT/1 ML 3ML VIAL SQ SCH ×4 (07:30→21:48)
[2020-04-06] MEDS: BENZONATATE 100 MG CAP PO SCH ×3 (08:50→21:48)
[2020-04-06] MEDS: LORATADINE 10 MG TAB PO SCH (08:50)
[2020-04-06] MEDS: CEFEPIME 1GM/NS 0.9% 50 ML 50 ML IV SCH ×2 (08:50→21:48)
[2020-04-06] MEDS: ASPIRIN 81 MG CHEW TAB PO SCH (08:50)
[2020-04-06] MEDS: CLOPIDOGREL BISULFATE 75 MG TAB PO SCH (08:50)
[2020-04-06] MEDS: DIVALPROEX SODIUM 250 MG TAB...DR PO SCH ×2 (08:50→18:31)
[2020-04-06] MEDS: CYANOCOBALAMIN 1,000 MCG TAB PO SCH (08:51)
[2020-04-06] MEDS: METOPROLOL SUCCINATE 25 MG TAB XL PO SCH ×2 (09:00→18:31)
[2020-04-06] MEDS: NIFEDIPINE CR 30 MG TAB PO SCH (09:00)
[2020-04-06] MEDS: MUPIROCIN 2% OINT 22 GM TUBE TOP SCH (09:04)
[2020-04-06] MEDS: SODIUM FERRIC GLUCONATE COMPLX 125 MG in SODIUM CHLORIDE 0.9% 100 ML 100 ML IV SCH (10:35)
[2020-04-06 11:30] LABS: BASOPHILS % 0.1 % (0.0-1.0); HEMATOCRIT 24.5 % (34.2-44.1); LYMPHOCYTES # (AUTO) 0.6 (1.0-3.2); LYMPHOCYTES % 7.1 % (18.0-39.1); MEAN CORPUSCULAR HEMOGLOBIN 21.9 pg (28-32); MEAN CORPUSCULAR HGB CONC 26.9 g/dL (31-35); MEAN CORPUSCULAR VOLUME 81.1 fL (81-99); MONOCYTES # (AUTO) 0.6 (0.2-0.8); MONOCYTES % 7.4 % (4.4-11.3); NEUTROPHILS # (AUTO) 7.1 (2.1-6.9); NEUTROPHILS % 82.9 % (38.7-80.0); PLATELET COUNT 380 x10e3/uL (140-360); RED BLOOD COUNT 3.02 x10e6/uL (3.6-5.1); RED CELL DISTRIBUTION WIDTH 18.2 % (11.7-14.4)
[2020-04-06 11:33] LABS: HEMOGLOBIN 6.6 g/dL (12.0-16.0)
[2020-04-06 11:47] LABS: ANION GAP 10.8 mmol/L (8-16); BLOOD UREA NITROGEN 30 mg/dL (7-26); BUN/CREATININE RATIO 42 (6-25); CALCIUM 7.3 mg/dL (8.4-10.2); CARBON DIOXIDE 37 mmol/L (22-29); CHLORIDE 101 mmol/L (98-107); CREATININE, SERUM 0.71 mg/dL (0.57-1.11); EST GLOMERULAR FILTRATION RATE > 60 ML/MIN (60-); GLUCOSE 146 mg/dL (74-118); POTASSIUM 3.8 mmol/L (3.5-5.1); SODIUM 145 mmol/L (136-145)
[2020-04-06] MEDS ORDERED: SODIUM CHLORIDE 0.9% 250ML 250 ML IV ONE (12:00)
[2020-04-06] MEDS ORDERED: FUROSEMIDE INJ 10 MG/ML 2 ML VIAL IV PRN (12:00)
[2020-04-06 12:06] LABS: MAGNESIUM 1.7 MG/DL (1.3-2.1); PHOSPHORUS 2.4 MG/DL (2.3-4.7)
[2020-04-06] MEDS: ALPRAZOLAM 0.5 MG TAB PO PRN (13:15)
[2020-04-06] MEDS: TRAMADOL HCL 50 MG TAB PO PRN (13:15)
[2020-04-06] MEDS ORDERED: SODIUM CHLORIDE 0.9% 250ML 250 ML ONE ×2 (14:04→23:06)
[2020-04-06] MEDS: AZITHROMYCIN 250MG/NS 100 ML 100 ML IV SCH (18:31)
[2020-04-06] MEDS: PANTOPRAZOLE SOD 40 MG TABEC PO SCH (21:48)
[2020-04-06] MEDS: TRAZODONE HCL 50 MG TAB PO SCH (21:48)
[2020-04-06] MEDS: ZOLPIDEM TARTRATE 5 MG TAB PO SCH (21:48)
[2020-04-07] VITALS (8 sets, daily range): BP systolic 91–164; BP diastolic 48–113
[2020-04-07] MEDS: IPRATROPIUM BROMIDE 0.02% 2.5 ML NEB NEB SCH ×6 (03:25→23:00)
[2020-04-07] MEDS ORDERED: PROMETHAZINE 12.5MG/ NACL 0.9% 12.5 MG/50 ML BAG IV PRN (03:45)
[2020-04-07] MEDS ORDERED: SODIUM CHLORIDE 0.9% 250ML 250 ML ONE ×2 (03:54→19:46)
[2020-04-07] MEDS: FUROSEMIDE INJ 10 MG/ML 2 ML VIAL IV SCH ×2 (06:00→16:48)
[2020-04-07] MEDS: GUAIFENESIN/DEXTROMETHORPHAN LIQD 5 ML UDC NG SCH ×3 (06:00→21:35)
[2020-04-07] MEDS: ACETYLCYSTEINE 200 MG/ML 4ML VIAL INH SCH ×2 (06:47→19:30)
[2020-04-07 06:50] LABS: BASOPHILS % 0.2 % (0.0-1.0); EOSINOPHILS % 0.3 % (0.0-6.0); HEMATOCRIT 34.6 % (34.2-44.1); LYMPHOCYTES # (AUTO) 0.9 (1.0-3.2); LYMPHOCYTES % 8.7 % (18.0-39.1); MEAN CORPUSCULAR HEMOGLOBIN 23.1 pg (28-32); MEAN CORPUSCULAR HGB CONC 28.9 g/dL (31-35); MEAN CORPUSCULAR VOLUME 79.9 fL (81-99); MONOCYTES # (AUTO) 0.7 (0.2-0.8); MONOCYTES % 6.7 % (4.4-11.3); NEUTROPHILS # (AUTO) 8.4 (2.1-6.9); PLATELET COUNT 389 x10e3/uL (140-360); RED BLOOD COUNT 4.33 x10e6/uL (3.6-5.1); RED CELL DISTRIBUTION WIDTH 17.9 % (11.7-14.4)
[2020-04-07] MEDS: ALPRAZOLAM 0.5 MG TAB PO PRN (06:51)
[2020-04-07 07:15] LABS: ANION GAP 12.1 mmol/L (8-16); BLOOD UREA NITROGEN 25 mg/dL (7-26); BUN/CREATININE RATIO 32 (6-25); CALCIUM 9.8 mg/dL (8.4-10.2); CHLORIDE 88 mmol/L (98-107); CREATININE, SERUM 0.79 mg/dL (0.57-1.11); EST GLOMERULAR FILTRATION RATE > 60 ML/MIN (60-); GLUCOSE 179 mg/dL (74-118); POTASSIUM 4.1 mmol/L (3.5-5.1); SODIUM 140 mmol/L (136-145)
[2020-04-07 07:16] LABS: CARBON DIOXIDE 44 mmol/L (22-29)
[2020-04-07] MEDS: INSULIN REGULAR, HUMAN 100 UNIT/1 ML 3ML VIAL SQ SCH ×4 (07:30→21:35)
[2020-04-07 07:35] LABS: MAGNESIUM 1.9 MG/DL (1.3-2.1); PHOSPHORUS 2.3 MG/DL (2.3-4.7)
[2020-04-07] MEDS: CEFEPIME 1GM/NS 0.9% 50 ML 50 ML IV SCH ×2 (08:37→21:35)
[2020-04-07] MEDS: ASPIRIN 81 MG CHEW TAB PO SCH (08:38)
[2020-04-07] MEDS: DIVALPROEX SODIUM 250 MG TAB...DR PO SCH ×2 (08:38→16:48)
[2020-04-07] MEDS: CLOPIDOGREL BISULFATE 75 MG TAB PO SCH (08:38)
[2020-04-07] MEDS: LORATADINE 10 MG TAB PO SCH (08:38)
[2020-04-07] MEDS: BENZONATATE 100 MG CAP PO SCH ×3 (08:39→21:35)
[2020-04-07] MEDS: NIFEDIPINE CR 30 MG TAB PO SCH (08:39)
[2020-04-07] MEDS: METOPROLOL SUCCINATE 25 MG TAB XL PO SCH (08:40)
[2020-04-07] MEDS: CYANOCOBALAMIN 1,000 MCG TAB PO SCH (08:40)
[2020-04-07] MEDS: SODIUM FERRIC GLUCONATE COMPLX 125 MG in SODIUM CHLORIDE 0.9% 100 ML 100 ML IV SCH (10:07)
[2020-04-07] MEDS: MUPIROCIN 2% OINT 22 GM TUBE TOP SCH (12:34)
[2020-04-07] MEDS ORDERED: VITAMIN B-121000 MCG PO (14:00)
[2020-04-07] MEDS ORDERED: Guaifenesin/Dextromethorphan PO (14:00)
[2020-04-07] MEDS ORDERED: LORATADINE10 MG PO (14:00)
[2020-04-07] MEDS ORDERED: FERROUS SULFAT325 M1 PO (14:00)
[2020-04-07] MEDS ORDERED: TESSALON PERLE100 MG PO (14:00)
[2020-04-07] MEDS ORDERED: ZITHROMAX500 MG PO (14:01)
[2020-04-07] MEDS ORDERED: KEFLEX500 MG PO (14:01)
[2020-04-07] MEDS ORDERED: METOPROLOL TARTRATE INJ 1 MG/ML VIAL IV PRN (14:15)
[2020-04-07] MEDS ORDERED: METOPROLOL TARTRATE INJ 1 MG/ML VIAL IV ONE (14:30)
[2020-04-07] MEDS: METOPROLOL TARTRATE 25 MG TAB PO SCH (18:00)
[2020-04-07] MEDS: AZITHROMYCIN 250MG/NS 100 ML 100 ML IV SCH (19:45)
[2020-04-07] MEDS: TRAZODONE HCL 50 MG TAB PO SCH (21:35)
[2020-04-07] MEDS: PANTOPRAZOLE SOD 40 MG TABEC PO SCH (21:35)
[2020-04-07] MEDS: ZOLPIDEM TARTRATE 5 MG TAB PO SCH (21:35)
[2020-04-07] MEDS: TRAMADOL HCL 50 MG TAB PO PRN (21:50)
[2020-04-08] VITALS (9 sets, daily range): BP systolic 102–151; BP diastolic 61–75
[2020-04-08] MEDS: METOPROLOL TARTRATE 25 MG TAB PO SCH ×4 (00:09→17:49)
[2020-04-08] MEDS: IPRATROPIUM BROMIDE 0.02% 2.5 ML NEB NEB SCH ×7 (03:00→23:00)
[2020-04-08] MEDS: GUAIFENESIN/DEXTROMETHORPHAN LIQD 5 ML UDC NG SCH ×3 (06:27→20:41)
[2020-04-08] MEDS: FUROSEMIDE INJ 10 MG/ML 2 ML VIAL IV SCH ×2 (06:27→17:04)
[2020-04-08 07:13] LABS: BASOPHILS % 0.4 % (0.0-1.0); EOSINOPHILS # (AUTO) 0.2 (0.0-0.4); EOSINOPHILS % 1.6 % (0.0-6.0); HEMATOCRIT 36.6 % (34.2-44.1); HEMOGLOBIN 10.5 g/dL (12.0-16.0); LYMPHOCYTES # (AUTO) 0.8 (1.0-3.2); LYMPHOCYTES % 7.5 % (18.0-39.1); MEAN CORPUSCULAR HEMOGLOBIN 23.4 pg (28-32); MEAN CORPUSCULAR HGB CONC 28.7 g/dL (31-35); MEAN CORPUSCULAR VOLUME 81.5 fL (81-99); MONOCYTES # (AUTO) 0.8 (0.2-0.8); MONOCYTES % 7.8 % (4.4-11.3); NEUTROPHILS # (AUTO) 8.7 (2.1-6.9); PLATELET COUNT 389 x10e3/uL (140-360); RED BLOOD COUNT 4.49 x10e6/uL (3.6-5.1); RED CELL DISTRIBUTION WIDTH 18.9 % (11.7-14.4)
[2020-04-08] MEDS: INSULIN REGULAR, HUMAN 100 UNIT/1 ML 3ML VIAL SQ SCH ×4 (07:30→20:24)
[2020-04-08 07:43] LABS: BLOOD UREA NITROGEN 17 mg/dL (7-26); BUN/CREATININE RATIO 23 (6-25); CALCIUM 9.2 mg/dL (8.4-10.2); CHLORIDE 89 mmol/L (98-107); CREATININE, SERUM 0.73 mg/dL (0.57-1.11); EST GLOMERULAR FILTRATION RATE > 60 ML/MIN (60-); GLUCOSE 199 mg/dL (74-118); SODIUM 139 mmol/L (136-145)
[2020-04-08 07:56] LABS: CARBON DIOXIDE 43 mmol/L (22-29); MAGNESIUM 1.9 MG/DL (1.3-2.1); PHOSPHORUS 2.9 MG/DL (2.3-4.7)
[2020-04-08] MEDS: NIFEDIPINE CR 30 MG TAB PO SCH (09:00)
[2020-04-08] MEDS: ASPIRIN 81 MG CHEW TAB PO SCH (09:00)
[2020-04-08] MEDS: MUPIROCIN 2% OINT 22 GM TUBE TOP SCH (09:00)
[2020-04-08] MEDS: LORATADINE 10 MG TAB PO SCH (09:00)
[2020-04-08] MEDS: CLOPIDOGREL BISULFATE 75 MG TAB PO SCH (09:00)
[2020-04-08] MEDS: CEFEPIME 1GM/NS 0.9% 50 ML 50 ML IV SCH ×2 (09:00→20:41)
[2020-04-08] MEDS: SODIUM FERRIC GLUCONATE COMPLX 125 MG in SODIUM CHLORIDE 0.9% 100 ML 100 ML IV SCH (09:00)
[2020-04-08] MEDS: CYANOCOBALAMIN 1,000 MCG TAB PO SCH (09:00)
[2020-04-08] MEDS: ACETYLCYSTEINE 200 MG/ML 4ML VIAL INH SCH ×2 (09:00→21:00)
[2020-04-08] MEDS: DIVALPROEX SODIUM 250 MG TAB...DR PO SCH ×2 (09:00→16:24)
[2020-04-08] MEDS: BENZONATATE 100 MG CAP PO SCH ×3 (09:00→20:41)
[2020-04-08] MEDS: TRAMADOL HCL 50 MG TAB PO PRN (12:58)
[2020-04-08] MEDS: AZITHROMYCIN 250MG/NS 100 ML 100 ML IV SCH (17:04)
[2020-04-08] MEDS ORDERED: RIVAROXABAN 20 MG TABLET PO SCH (18:00)
[2020-04-08] MEDS: TRAZODONE HCL 50 MG TAB PO SCH (20:41)
[2020-04-08] MEDS: PANTOPRAZOLE SOD 40 MG TABEC PO SCH (20:41)
[2020-04-08] MEDS: ALPRAZOLAM 0.5 MG TAB PO PRN (20:41)
[2020-04-08] MEDS: ZOLPIDEM TARTRATE 5 MG TAB PO SCH (21:00)
[2020-04-09] MEDS: IPRATROPIUM BROMIDE 0.02% 2.5 ML NEB NEB SCH (03:00)
[2020-04-09 05:01] VITALS: BP 100/44
[2020-04-09] MEDS: FUROSEMIDE INJ 10 MG/ML 2 ML VIAL IV SCH (05:31)
[2020-04-09] MEDS: GUAIFENESIN/DEXTROMETHORPHAN LIQD 5 ML UDC NG SCH (05:32)
[2020-04-09] MEDS: INSULIN REGULAR, HUMAN 100 UNIT/1 ML 3ML VIAL SQ SCH (07:30)
[2020-04-09 07:51] VITALS: BP 100/70
[2020-04-09] MEDS: NIFEDIPINE CR 30 MG TAB PO SCH (08:02)
[2020-04-09] MEDS: DIVALPROEX SODIUM 250 MG TAB...DR PO SCH (08:02)
[2020-04-09] MEDS: LORATADINE 10 MG TAB PO SCH (08:02)
[2020-04-09] MEDS: ASPIRIN 81 MG CHEW TAB PO SCH (08:02)
[2020-04-09] MEDS: CEFEPIME 1GM/NS 0.9% 50 ML 50 ML IV SCH (08:02)
[2020-04-09] MEDS: BENZONATATE 100 MG CAP PO SCH (08:03)
[2020-04-09] MEDS: CYANOCOBALAMIN 1,000 MCG TAB PO SCH (08:03)
[2020-04-09] MEDS: TRAMADOL HCL 50 MG TAB PO PRN (08:04)
[2020-04-09 08:10] VITALS: BP 100/70
[2020-04-09] MEDS ORDERED: METOPROLOL TARTRATE 50 MG TAB PO SCH (09:00)
[2020-04-09] MEDS: MUPIROCIN 2% OINT 22 GM TUBE TOP SCH (11:03)
[2020-04-09 11:56] VITALS: BP 95/66
== END 2020-04-09 12:27 | disposition home or self-care (01) | DRG 291 ==
LOC: ER 08:26 → ERHOLD 11:28 → MED/SURG2 12:37
PROVIDERS: ADMIT Internal Medicine; ATTEND Internal Medicine
DX: I13.0 Hypertensive heart and chronic kidney disease with heart failure and stage 1 through stage 4 chronic kidney disease, or unspecified chronic kidney disease (principal); I50.21 Acute systolic (congestive) heart failure; J44.1 Chronic obstructive pulmonary disease with (acute) exacerbation; N17.9 Acute kidney failure, unspecified; J96.11 Chronic respiratory failure with hypoxia; Z20.822 Contact with and (suspected) exposure to COVID-19; E11.22 Type 2 diabetes mellitus with diabetic chronic kidney disease; N18.30 Chronic kidney disease, stage 3 unspecified; G40.909 Epilepsy, unspecified, not intractable, without status epilepticus; Z87.891 Personal history of nicotine dependence; E11.40 Type 2 diabetes mellitus with diabetic neuropathy, unspecified; Z79.899 Other long term (current) drug therapy; F32.9 Major depressive disorder, single episode, unspecified; I25.10 Atherosclerotic heart disease of native coronary artery without angina pectoris; K21.9 Gastro-esophageal reflux disease without esophagitis; Z74.09 Other reduced mobility; M81.0 Age-related osteoporosis without current pathological fracture; E11.51 Type 2 diabetes mellitus with diabetic peripheral angiopathy without gangrene; E66.9 Obesity, unspecified; Z68.31 Body mass index [BMI] 31.0-31.9, adult; F41.1 Generalized anxiety disorder; E53.8 Deficiency of other specified B group vitamins; G89.4 Chronic pain syndrome; I48.91 Unspecified atrial fibrillation; Z79.01 Long term (current) use of anticoagulants; G47.33 Obstructive sleep apnea (adult) (pediatric); D50.0 Iron deficiency anemia secondary to blood loss (chronic); Z99.81 Dependence on supplemental oxygen
CPT/HCPCS: 36415; 36569; 70450; 71045; 72170; 80048; 80053; 80061; 82607; 82728; 82948; 83036; 83540; 83605; 83735; 83880; 84100; 84436; 84443; 84466; 84479; 84484; 85014; 85018; 85025; 85610; 85730; 86850; 86900; 86920; 87040; 87400; 93005; 93306; 94640; 96372; 97139; 99251; 99284; J0692; J1100; J1817; J1940; J2550; J2916; J2930; J7050; P9016; U0002

== ENCOUNTER 2020-09-29 05:10 | Emergency (ER) | payer MEDICARE ==
[~2020-09-29] VITALS: Ht 160 cm; Wt 81.6 kg
[~2020-09-29 05:10] MED LIST changes: +ASPIRIN81 MG PO; +BREO ELLIPTA 11 EACH INH; +FERROUS SULFAT325 M1 PO; +Guaifenesin/Dextromethorphan PO; +HUMALOG100 UNIT/1 SQ; +KEFLEX500 MG PO; +LANTUS 3ML100 UNITS/ SQ; +LASIX20 MG PO; +LORATADINE10 MG PO; +PLAVIX75 MG PO; +PROVENTIL HFA6.7 GM INH; +TESSALON PERLE100 MG PO; +VESICARE5 MG PO; +VITAMIN B-121000 MCG PO; +ZITHROMAX500 MG PO
[2020-09-29] MEDS ORDERED: IPRATROPIUM BROMIDE 0.02% 2.5 ML NEB NEB STA (07:20)
[2020-09-29] MEDS ORDERED: ALBUTEROL SULF 0.083% NEB SOLN 3 ML NEB NEB STA (07:20)
== END 2020-09-29 07:48 | disposition home or self-care (01) ==
LOC: ER 05:42
DX: T14.8XXA Other injury of unspecified body region, initial encounter (principal); W06.XXXA Fall from bed, initial encounter; Y93.9 Activity, unspecified; Y92.003 Bedroom of unspecified non-institutional (private) residence as the place of occurrence of the external cause; I11.0 Hypertensive heart disease with heart failure; I50.9 Heart failure, unspecified; Z99.81 Dependence on supplemental oxygen; E11.9 Type 2 diabetes mellitus without complications; J44.9 Chronic obstructive pulmonary disease, unspecified; I48.91 Unspecified atrial fibrillation; Z79.01 Long term (current) use of anticoagulants
CPT/HCPCS: 36415; 82948; 99284

== ENCOUNTER 2020-10-07 08:43 | Inpatient (IN) | payer MEDICARE ==
[~2020-10-07] VITALS: Ht 160 cm; Wt 98.1 kg
[2020-10-07] MEDS ORDERED: SODIUM CHLORIDE 0.9% 1000ML 1,000 ML IV STA (08:45)
[2020-10-07] MEDS ORDERED: ALBUTEROL/IPRATROPIUM 3 ML NEB NEB NR (09:00)
[2020-10-07 09:17] LABS: BASOPHILS % 0.3 % (0.0-1.0); EOSINOPHILS # (AUTO) 0.1 (0.0-0.4); EOSINOPHILS % 0.7 % (0.0-6.0); HEMATOCRIT 30.4 % (34.2-44.1); LYMPHOCYTES # (AUTO) 0.7 (1.0-3.2); LYMPHOCYTES % 5.5 % (18.0-39.1); MEAN CORPUSCULAR HEMOGLOBIN 28.5 pg (28-32); MEAN CORPUSCULAR HGB CONC 29.6 g/dL (31-35); MEAN CORPUSCULAR VOLUME 96.2 fL (81-99); MONOCYTES # (AUTO) 0.8 (0.2-0.8); MONOCYTES % 6.8 % (4.4-11.3); NEUTROPHILS # (AUTO) 10.4 (2.1-6.9); NEUTROPHILS % 85.5 % (38.7-80.0); PLATELET COUNT 348 x10e3/uL (140-360); RED BLOOD COUNT 3.16 x10e6/uL (3.6-5.1); RED CELL DISTRIBUTION WIDTH 14.8 % (11.7-14.4)
[2020-10-07 09:35] LABS: ALANINE AMINOTRANSFERASE 22 IU/L (0-55); ALBUMIN 3.3 g/dL (3.5-5.0); ALBUMIN/GLOBULIN RATIO 1.1 (0.8-2.0); ALKALINE PHOSPHATASE 81 IU/L (40-150); ANION GAP 18.6 mmol/L (8-16); BLOOD UREA NITROGEN 53 mg/dL (7-26); BUN/CREATININE RATIO 41 (6-25); CALCIUM 8.8 mg/dL (8.4-10.2); CARBON DIOXIDE 33 mmol/L (22-29); CHLORIDE 96 mmol/L (98-107); CREATINE KINASE 44 IU/L (29-168); CREATININE, SERUM 1.29 mg/dL (0.57-1.11); EST GLOMERULAR FILTRATION RATE 41 ML/MIN (60-); GLUCOSE 179 mg/dL (74-118); SODIUM 142 mmol/L (136-145)
[2020-10-07 09:41] LABS: POTASSIUM 5.6 mmol/L (3.5-5.1)
[2020-10-07 09:46] LABS: CLARITY,URINE CLEAR (CLEAR); COLOR,URINE YELLOW (YELLOW); KETONES,URINE NEGATIVE (NEGATIVE); LEUKOCYTE ESTERASE ,URINE NEGATIVE (NEGATIVE); NITRITE,URINE POSITIVE (NEGATIVE); PROTEIN,URINE DIPSTICK NEGATIVE (NEGATIVE); URINE UROBILINOGEN 0.2 mg/dL (0.2 - 1)
[2020-10-07 09:57] LABS: BACTERIA,URINE MODERATE /HPF; EPITHELIAL CELLS,URINE FEW /LPF; MUCUS,URINE MANY (RARE); WBC,URINE (MAN) 0-5 /HPF (0-5)
[2020-10-07] MEDS ORDERED: DEXTROSE 50% SYRINGE 50 ML IV STA (09:58)
[2020-10-07] MEDS ORDERED: SODIUM BICARBONATE 8.4% INJ 50 ML SYR IV STA (09:58)
[2020-10-07] MEDS ORDERED: ALBUTEROL/IPRATROPIUM 3 ML NEB ONE ×2 (09:58)
[2020-10-07] MEDS ORDERED: CALCIUM GLUCONATE 10% INJ 4.65 MEQ in SODIUM CHLORIDE 0.9% 50ML 50 ML IV ONE (10:00)
[2020-10-07] MEDS ORDERED: INSULIN REGULAR, HUMAN 100 UNIT/1 ML IV NR (10:00)
[2020-10-07] MEDS: PIPERACILLIN/TAZOBACTAM 3.375 GM in SODIUM CHLORIDE 0.9% 50ML 50 ML IV SCH ×3 (10:01→19:24)
[2020-10-07] MEDS: METHYLPREDNISOLONE SOD SUCC 40 MG/ML VIAL 1ML IV SCH ×3 (10:35→19:24)
[2020-10-07] MEDS: FUROSEMIDE INJ 10 MG/ML 4 ML VIAL IV SCH (10:35)
[2020-10-07] MEDS ORDERED: ALBUTEROL SULF 0.083% NEB SOLN 3 ML NEB NEB STA (11:06)
[2020-10-07] MEDS ORDERED: QUETIAPINE FUM100 MG PO (12:16)
[2020-10-07] MEDS ORDERED: HUMALOG100 UNIT/3 SQ (12:17)
[2020-10-07] MEDS ORDERED: HYDROCHLOROTHIA25 MG PO (12:17)
[2020-10-07] MEDS ORDERED: FLONASE ALLERG9.9 ML INH (12:17)
[2020-10-07] MEDS ORDERED: GEMFIBROZIL600 MG PO (12:17)
[2020-10-07] MEDS ORDERED: ELIQUIS5 MG PO (12:17)
[2020-10-07] MEDS ORDERED: GABAPENTIN600 MG PO (12:17)
[2020-10-07] MEDS ORDERED: ATORVASTATIN CA40 MG PO (12:17)
[2020-10-07] MEDS ORDERED: ALENDRONATE SOD70 MG PO (12:17)
[2020-10-07] MEDS ORDERED: POTASSIUM CHLO20 ME1 PO (12:17)
[2020-10-07] MEDS ORDERED: DOXEPIN HCL25 MG PO (12:17)
[2020-10-07] MEDS ORDERED: FUROSEMIDE40 MG PO (12:17)
[2020-10-07] MEDS ORDERED: PAROXETINE HCL20 MG PO (12:17)
[2020-10-07] MEDS ORDERED: LOPRESSOR25 MG PO (12:17)
[2020-10-07] MEDS ORDERED: BREO ELLIPTA 21 EACH INH (12:17)
[2020-10-07 15:31] VITALS: BP 105/54
[2020-10-07] MEDS ORDERED: SODIUM CHLORIDE 0.9% 250ML 250 ML ONE (15:59)
[2020-10-07 16:21] VITALS: BP 105/54
[2020-10-07 17:35] LABS: CREATINE KINASE MB 1.8 ng/mL (0-5.0)
[2020-10-07] MEDS: ALBUTEROL/IPRATROPIUM 3 ML NEB NEB SCH ×2 (19:49→23:53)
[2020-10-07 20:00] VITALS: BP 98/79
[2020-10-07 20:20] VITALS: BP 98/79
[2020-10-08] VITALS (8 sets, daily range): BP systolic 103–165; BP diastolic 39–103
[2020-10-08] MEDS: PIPERACILLIN/TAZOBACTAM 3.375 GM in SODIUM CHLORIDE 0.9% 50ML 50 ML IV SCH ×4 (01:19→20:21)
[2020-10-08] MEDS: METHYLPREDNISOLONE SOD SUCC 40 MG/ML VIAL 1ML IV SCH ×3 (01:19→21:50)
[2020-10-08] MEDS: INSULIN GLARGINE 100 UNITS/ML VIAL SQ SCH ×2 (01:19→12:00)
[2020-10-08] MEDS: ALBUTEROL/IPRATROPIUM 3 ML NEB NEB SCH ×6 (03:05→22:35)
[2020-10-08 04:57] LABS: BASOPHILS % 0.3 % (0.0-1.0); HEMATOCRIT 29.2 % (34.2-44.1); HEMOGLOBIN 8.4 g/dL (12.0-16.0); LYMPHOCYTES # (AUTO) 0.9 (1.0-3.2); LYMPHOCYTES % 12.9 % (18.0-39.1); MEAN CORPUSCULAR HEMOGLOBIN 28.1 pg (28-32); MEAN CORPUSCULAR HGB CONC 28.8 g/dL (31-35); MEAN CORPUSCULAR VOLUME 97.7 fL (81-99); MONOCYTES # (AUTO) 0.5 (0.2-0.8); MONOCYTES % 6.6 % (4.4-11.3); NEUTROPHILS # (AUTO) 5.4 (2.1-6.9); NEUTROPHILS % 79.2 % (38.7-80.0); PLATELET COUNT 253 x10e3/uL (140-360); RED BLOOD COUNT 2.99 x10e6/uL (3.6-5.1); RED CELL DISTRIBUTION WIDTH 14.8 % (11.7-14.4)
[2020-10-08 05:29] LABS: CREATINE KINASE MB 1.4 ng/mL (0-5.0)
[2020-10-08 05:45] LABS: ALBUMIN 3.1 g/dL (3.5-5.0); ANION GAP 18.8 mmol/L (8-16); CALCIUM 9.2 mg/dL (8.4-10.2); CREATININE, SERUM 1.35 mg/dL (0.57-1.11); POTASSIUM 4.8 mmol/L (3.5-5.1)
[2020-10-08] MEDS ORDERED: CLOPIDOGREL BISULFATE 75 MG TAB PO SCH (09:00)
[2020-10-08] MEDS: DIVALPROEX SODIUM 250 MG TAB...DR PO SCH ×2 (09:04→17:41)
[2020-10-08] MEDS: FUROSEMIDE INJ 10 MG/ML 4 ML VIAL IV SCH (09:04)
[2020-10-08] MEDS: APIXABAN 5 MG TABLET PO SCH ×2 (09:04→17:41)
[2020-10-08] MEDS: GABAPENTIN 300 MG CAP PO SCH ×3 (09:05→21:00)
[2020-10-08] MEDS: QUETIAPINE FUMARATE 100 MG TAB PO SCH (09:05)
[2020-10-08] MEDS: LORATADINE 10 MG TAB PO SCH (09:15)
[2020-10-08] MEDS: BALSAM PERU/CASTOR OIL 60 GM OINT...G. TP SCH (12:39)
[2020-10-08] MEDS: ACETAMINOPHEN/CODEINE 300MG - 30MG TAB PO PRN (17:36)
[2020-10-08] MEDS ORDERED: PANTOPRAZOLE SOD 40 MG TABEC PO SCH (21:00)
[2020-10-08] MEDS: ATORVASTATIN 40 MG TAB PO SCH (21:00)
[2020-10-08] MEDS: PAROXETINE HCL 20 MG TAB PO SCH (21:00)
[2020-10-08] MEDS: TRAZODONE HCL 50 MG TAB PO SCH (21:00)
[2020-10-08] MEDS: METOPROLOL TARTRATE INJ 1 MG/ML VIAL IV PRN (22:26)
[2020-10-08] MEDS: PROMETHAZINE 12.5MG/ NACL 0.9% 12.5 MG/50 ML BAG IV PRN (23:50)
[2020-10-09] VITALS (7 sets, daily range): BP systolic 94–169; BP diastolic 66–107
[2020-10-09] MEDS: PIPERACILLIN/TAZOBACTAM 3.375 GM in SODIUM CHLORIDE 0.9% 50ML 50 ML IV SCH ×4 (00:14→21:24)
[2020-10-09] MEDS: MORPHINE SULFATE INJ 4 MG/ML INJ 1ML IV PRN ×3 (00:14→15:26)
[2020-10-09] MEDS: INSULIN GLARGINE 100 UNITS/ML VIAL SQ SCH ×3 (00:18→23:47)
[2020-10-09] MEDS: ALBUTEROL/IPRATROPIUM 3 ML NEB NEB SCH ×6 (03:00→23:25)
[2020-10-09] MEDS: FLUTICASONE INH SCH (04:17)
[2020-10-09] MEDS: VILANTEROL INH SCH (04:17)
[2020-10-09] MEDS: METHYLPREDNISOLONE SOD SUCC 40 MG/ML VIAL 1ML IV SCH ×3 (05:19→21:25)
[2020-10-09] MEDS: PROMETHAZINE 12.5MG/ NACL 0.9% 12.5 MG/50 ML BAG IV PRN (05:50)
[2020-10-09] MEDS ORDERED: Pantoprazole IV 40 MG in SODIUM CHLORIDE 0.9% 50ML 50 ML IV SCH (06:30)
[2020-10-09] MEDS ORDERED: OCTREOTIDE ACETATE 500 MCG in SODIUM CHLORIDE 0.9% 250ML 250 ML IV SCH (06:30)
[2020-10-09] MEDS ORDERED: DEXTROSE 50% SYRINGE 50 ML IV PRN (06:30)
[2020-10-09 08:48] LABS: BASOPHILS % 0.2 % (0.0-1.0); HEMATOCRIT 26.6 % (34.2-44.1); HEMOGLOBIN 7.8 g/dL (12.0-16.0); LYMPHOCYTES # (AUTO) 0.5 (1.0-3.2); LYMPHOCYTES % 5.3 % (18.0-39.1); MEAN CORPUSCULAR HGB CONC 29.3 g/dL (31-35); MEAN CORPUSCULAR VOLUME 95.3 fL (81-99); MONOCYTES # (AUTO) 0.4 (0.2-0.8); NEUTROPHILS # (AUTO) 7.8 (2.1-6.9); NEUTROPHILS % 88.6 % (38.7-80.0); PLATELET COUNT 399 x10e3/uL (140-360); RED BLOOD COUNT 2.79 x10e6/uL (3.6-5.1); RED CELL DISTRIBUTION WIDTH 15.5 % (11.7-14.4)
[2020-10-09 08:55] LABS: INR 0.98; PROTHROMBIN TIME 13.6 seconds (11.9-14.5)
[2020-10-09 08:56] LABS: PARTIAL THROMBOPLASTIN TIME 25.2 seconds (23.8-35.5)
[2020-10-09 09:03] LABS: ALBUMIN 3.1 g/dL (3.5-5.0); ANION GAP 17.8 mmol/L (8-16); CALCIUM 9.7 mg/dL (8.4-10.2); CREATININE, SERUM 1.35 mg/dL (0.57-1.11); POTASSIUM 4.8 mmol/L (3.5-5.1)
[2020-10-09] MEDS: LORATADINE 10 MG TAB PO SCH (09:19)
[2020-10-09] MEDS: GABAPENTIN 300 MG CAP PO SCH ×3 (09:19→20:37)
[2020-10-09] MEDS: BALSAM PERU/CASTOR OIL 60 GM OINT...G. TP SCH (09:19)
[2020-10-09] MEDS: QUETIAPINE FUMARATE 100 MG TAB PO SCH (09:19)
[2020-10-09] MEDS: FUROSEMIDE INJ 10 MG/ML 4 ML VIAL IV SCH (09:19)
[2020-10-09] MEDS: DIVALPROEX SODIUM 250 MG TAB...DR PO SCH ×2 (09:19→16:29)
[2020-10-09 09:37] LABS: FERRITIN 55.24 ng/mL (4.63-204.00)
[2020-10-09] MEDS: OCTREOTIDE ACETATE 500 MCG in SODIUM CHLORIDE 0.9% 250ML 250 ML IV SCH ×2 (10:14→20:42)
[2020-10-09] MEDS ORDERED: SODIUM CHLORIDE 0.9% 250ML 250 ML ONE (11:52)
[2020-10-09] MEDS ORDERED: PROPOFOL IV EMULSION 10 MG/ML 20 ML VIAL ONE (12:52)
[2020-10-09] MEDS ORDERED: LIDOCAINE HCL 2% LOCAL INJ 5 ML SDV VIAL INJ ONE (12:52)
[2020-10-09] MEDS ORDERED: POVIDONE IODINE 0.05% 0.05 % ML PO ONE (12:52)
[2020-10-09] MEDS: INSULIN LISPRO 100 UNIT/1 ML 3ML VIAL SQ SCH ×3 (14:17→23:46)
[2020-10-09] MEDS: TRAZODONE HCL 50 MG TAB PO SCH (20:37)
[2020-10-09] MEDS: PAROXETINE HCL 20 MG TAB PO SCH (20:37)
[2020-10-09] MEDS: ATORVASTATIN 40 MG TAB PO SCH (20:37)
[2020-10-09] MEDS: ACETAMINOPHEN/CODEINE 300MG - 30MG TAB PO PRN (20:39)
[2020-10-09] MEDS: Pantoprazole IV 40 MG in SODIUM CHLORIDE 0.9% 50ML 50 ML IV SCH ×2 (22:36→23:47)
[2020-10-10] VITALS (8 sets, daily range): BP systolic 77–149; BP diastolic 42–72
[2020-10-10] MEDS: Pantoprazole IV 40 MG in SODIUM CHLORIDE 0.9% 50ML 50 ML IV SCH ×4 (00:19→18:49)
[2020-10-10] MEDS: PIPERACILLIN/TAZOBACTAM 3.375 GM in SODIUM CHLORIDE 0.9% 50ML 50 ML IV SCH ×4 (02:27→20:50)
[2020-10-10] MEDS: ALBUTEROL/IPRATROPIUM 3 ML NEB NEB SCH ×6 (02:36→23:59)
[2020-10-10] MEDS: FLUTICASONE INH SCH (03:46)
[2020-10-10] MEDS: VILANTEROL INH SCH (03:46)
[2020-10-10] MEDS: ACETAMINOPHEN/CODEINE 300MG - 30MG TAB PO PRN ×2 (05:35→18:30)
[2020-10-10] MEDS: METHYLPREDNISOLONE SOD SUCC 40 MG/ML VIAL 1ML IV SCH ×3 (05:36→22:30)
[2020-10-10] MEDS: OCTREOTIDE ACETATE 500 MCG in SODIUM CHLORIDE 0.9% 250ML 250 ML IV SCH (06:16)
[2020-10-10] MEDS: INSULIN LISPRO 100 UNIT/1 ML 3ML VIAL SQ SCH ×3 (06:32→19:00)
[2020-10-10] MEDS: LORATADINE 10 MG TAB PO SCH (08:20)
[2020-10-10] MEDS: FUROSEMIDE INJ 10 MG/ML 4 ML VIAL IV SCH ×2 (08:20→18:30)
[2020-10-10] MEDS: QUETIAPINE FUMARATE 100 MG TAB PO SCH (08:20)
[2020-10-10] MEDS: DIVALPROEX SODIUM 250 MG TAB...DR PO SCH ×2 (08:21→18:29)
[2020-10-10] MEDS: BALSAM PERU/CASTOR OIL 60 GM OINT...G. TP SCH (08:24)
[2020-10-10] MEDS: GABAPENTIN 300 MG CAP PO SCH ×3 (08:24→21:45)
[2020-10-10 08:49] LABS: BASOPHILS % 0.2 % (0.0-1.0); HEMATOCRIT 26.2 % (34.2-44.1); HEMOGLOBIN 7.4 g/dL (12.0-16.0); LYMPHOCYTES # (AUTO) 0.8 (1.0-3.2); LYMPHOCYTES % 8.8 % (18.0-39.1); MEAN CORPUSCULAR HEMOGLOBIN 27.9 pg (28-32); MEAN CORPUSCULAR HGB CONC 28.2 g/dL (31-35); MEAN CORPUSCULAR VOLUME 98.9 fL (81-99); MONOCYTES # (AUTO) 0.6 (0.2-0.8); MONOCYTES % 6.8 % (4.4-11.3); NEUTROPHILS # (AUTO) 7.6 (2.1-6.9); NEUTROPHILS % 82.9 % (38.7-80.0); PLATELET COUNT 340 x10e3/uL (140-360); RED BLOOD COUNT 2.65 x10e6/uL (3.6-5.1); RED CELL DISTRIBUTION WIDTH 14.9 % (11.7-14.4)
[2020-10-10 09:20] LABS: ANION GAP 16.3 mmol/L (8-16); CREATININE, SERUM 1.25 mg/dL (0.57-1.11); POTASSIUM 4.3 mmol/L (3.5-5.1)
[2020-10-10] MEDS: MORPHINE SULFATE INJ 4 MG/ML INJ 1ML IV PRN (13:09)
[2020-10-10] MEDS: PROMETHAZINE 12.5MG/ NACL 0.9% 12.5 MG/50 ML BAG IV PRN (13:46)
[2020-10-10] MEDS: SODIUM CHLORIDE FLUSH 10 ML SYR INJ PRN ×2 (13:46→18:29)
[2020-10-10] MEDS: INSULIN GLARGINE 100 UNITS/ML VIAL SQ SCH (14:38)
[2020-10-10] MEDS: ATORVASTATIN 40 MG TAB PO SCH (21:45)
[2020-10-10] MEDS: TRAZODONE HCL 50 MG TAB PO SCH (21:45)
[2020-10-10] MEDS: PAROXETINE HCL 20 MG TAB PO SCH (21:45)
[2020-10-11] VITALS (8 sets, daily range): BP systolic 108–154; BP diastolic 51–82
[2020-10-11] MEDS: MORPHINE SULFATE INJ 4 MG/ML INJ 1ML IV PRN ×3 (00:20→17:12)
[2020-10-11] MEDS: PROMETHAZINE 12.5MG/ NACL 0.9% 12.5 MG/50 ML BAG IV PRN ×3 (00:22→17:12)
[2020-10-11] MEDS ORDERED: OCTREOTIDE ACETATE 500 MCG in SODIUM CHLORIDE 0.9% 250ML 250 ML IV SCH (00:30)
[2020-10-11] MEDS: INSULIN GLARGINE 100 UNITS/ML VIAL SQ SCH ×2 (00:50→11:45)
[2020-10-11] MEDS: INSULIN LISPRO 100 UNIT/1 ML 3ML VIAL SQ SCH ×4 (00:52→18:00)
[2020-10-11] MEDS: PIPERACILLIN/TAZOBACTAM 3.375 GM in SODIUM CHLORIDE 0.9% 50ML 50 ML IV SCH ×4 (02:49→23:07)
[2020-10-11] MEDS: Pantoprazole IV 40 MG in SODIUM CHLORIDE 0.9% 50ML 50 ML IV SCH ×2 (02:55→08:25)
[2020-10-11] MEDS: ALBUTEROL/IPRATROPIUM 3 ML NEB NEB SCH ×6 (03:40→23:40)
[2020-10-11] MEDS: FLUTICASONE INH SCH (06:00)
[2020-10-11] MEDS: VILANTEROL INH SCH (06:00)
[2020-10-11] MEDS: METHYLPREDNISOLONE SOD SUCC 40 MG/ML VIAL 1ML IV SCH ×3 (06:47→23:22)
[2020-10-11] MEDS: LORATADINE 10 MG TAB PO SCH (09:36)
[2020-10-11] MEDS: FUROSEMIDE INJ 10 MG/ML 4 ML VIAL IV SCH (09:36)
[2020-10-11] MEDS: BALSAM PERU/CASTOR OIL 60 GM OINT...G. TP SCH (09:37)
[2020-10-11] MEDS: GABAPENTIN 300 MG CAP PO SCH ×3 (09:37→23:08)
[2020-10-11] MEDS: DIVALPROEX SODIUM 250 MG TAB...DR PO SCH ×2 (09:37→17:10)
[2020-10-11] MEDS: QUETIAPINE FUMARATE 100 MG TAB PO SCH (09:37)
[2020-10-11 09:47] LABS: BASOPHILS % 0.1 % (0.0-1.0); HEMATOCRIT 27.6 % (34.2-44.1); HEMOGLOBIN 7.9 g/dL (12.0-16.0); LYMPHOCYTES # (AUTO) 1.2 (1.0-3.2); LYMPHOCYTES % 11.3 % (18.0-39.1); MEAN CORPUSCULAR HEMOGLOBIN 27.9 pg (28-32); MEAN CORPUSCULAR HGB CONC 28.6 g/dL (31-35); MEAN CORPUSCULAR VOLUME 97.5 fL (81-99); MONOCYTES # (AUTO) 0.8 (0.2-0.8); MONOCYTES % 7.4 % (4.4-11.3); NEUTROPHILS # (AUTO) 8.5 (2.1-6.9); NEUTROPHILS % 79.7 % (38.7-80.0); PLATELET COUNT 261 x10e3/uL (140-360); RED BLOOD COUNT 2.83 x10e6/uL (3.6-5.1); RED CELL DISTRIBUTION WIDTH 14.6 % (11.7-14.4)
[2020-10-11 10:10] LABS: ANION GAP 15.1 mmol/L (8-16); CREATININE, SERUM 0.94 mg/dL (0.57-1.11); POTASSIUM 4.1 mmol/L (3.5-5.1)
[2020-10-11] MEDS: METOPROLOL TARTRATE INJ 1 MG/ML VIAL IV PRN (12:36)
[2020-10-11] MEDS ORDERED: SODIUM CHLORIDE 0.9% 250ML 250 ML ONE (16:10)
[2020-10-11] MEDS: TRAZODONE HCL 50 MG TAB PO SCH (23:07)
[2020-10-11] MEDS: PAROXETINE HCL 20 MG TAB PO SCH (23:08)
[2020-10-11] MEDS: ATORVASTATIN 40 MG TAB PO SCH (23:08)
[2020-10-12] VITALS (8 sets, daily range): BP systolic 126–154; BP diastolic 46–94
[2020-10-12] MEDS: MORPHINE SULFATE INJ 4 MG/ML INJ 1ML IV PRN ×4 (00:35→18:08)
[2020-10-12] MEDS: PROMETHAZINE 12.5MG/ NACL 0.9% 12.5 MG/50 ML BAG IV PRN ×3 (00:38→18:09)
[2020-10-12] MEDS: INSULIN GLARGINE 100 UNITS/ML VIAL SQ SCH ×2 (00:52→12:20)
[2020-10-12] MEDS: PIPERACILLIN/TAZOBACTAM 3.375 GM in SODIUM CHLORIDE 0.9% 50ML 50 ML IV SCH ×4 (02:41→20:00)
[2020-10-12] MEDS: ALBUTEROL/IPRATROPIUM 3 ML NEB NEB SCH ×7 (03:00→23:30)
[2020-10-12] MEDS: VILANTEROL INH SCH (06:00)
[2020-10-12] MEDS: FLUTICASONE INH SCH (06:00)
[2020-10-12] MEDS: METHYLPREDNISOLONE SOD SUCC 40 MG/ML VIAL 1ML IV SCH ×3 (06:45→22:00)
[2020-10-12] MEDS: INSULIN LISPRO 100 UNIT/1 ML 3ML VIAL SQ SCH ×4 (07:40→17:47)
[2020-10-12] MEDS: PANTOPRAZOLE SOD 40 MG TABEC PO SCH (08:15)
[2020-10-12] MEDS: GABAPENTIN 300 MG CAP PO SCH ×3 (08:16→21:00)
[2020-10-12] MEDS: DIVALPROEX SODIUM 250 MG TAB...DR PO SCH ×2 (08:16→17:00)
[2020-10-12] MEDS: LORATADINE 10 MG TAB PO SCH (08:16)
[2020-10-12] MEDS: QUETIAPINE FUMARATE 100 MG TAB PO SCH (08:16)
[2020-10-12] MEDS: FUROSEMIDE INJ 10 MG/ML 4 ML VIAL IV SCH (09:21)
[2020-10-12] MEDS: BALSAM PERU/CASTOR OIL 60 GM OINT...G. TP SCH (10:04)
[2020-10-12] MEDS: METOPROLOL TARTRATE 25 MG TAB PO SCH ×2 (14:56→22:00)
[2020-10-12] MEDS ORDERED: MORPHINE SULFATE INJ 2 MG/ML SYR IV PRN (17:15)
[2020-10-12] MEDS: PAROXETINE HCL 20 MG TAB PO SCH (21:00)
[2020-10-12] MEDS: TRAZODONE HCL 50 MG TAB PO SCH (21:00)
[2020-10-12] MEDS: ATORVASTATIN 40 MG TAB PO SCH (21:00)
[2020-10-12] MEDS ORDERED: CEFAZOLIN SOD 1 GM/NS 50ML 50 ML IV SCH (22:00)
[2020-10-13] VITALS (8 sets, daily range): BP systolic 105–144; BP diastolic 48–96
[2020-10-13] MEDS: PIPERACILLIN/TAZOBACTAM 3.375 GM in SODIUM CHLORIDE 0.9% 50ML 50 ML IV SCH ×4 (02:00→20:00)
[2020-10-13] MEDS: ALBUTEROL/IPRATROPIUM 3 ML NEB NEB SCH ×6 (03:15→23:30)
[2020-10-13] MEDS: FLUTICASONE INH SCH (06:00)
[2020-10-13] MEDS: VILANTEROL INH SCH (06:00)
[2020-10-13] MEDS: METHYLPREDNISOLONE SOD SUCC 40 MG/ML VIAL 1ML IV SCH ×3 (06:06→21:27)
[2020-10-13] MEDS: METOPROLOL TARTRATE 25 MG TAB PO SCH ×3 (06:06→21:28)
[2020-10-13] MEDS: INSULIN LISPRO 100 UNIT/1 ML 3ML VIAL SQ SCH ×4 (06:08→15:25)
[2020-10-13] MEDS: GABAPENTIN 300 MG CAP PO SCH ×3 (08:58→21:00)
[2020-10-13] MEDS: QUETIAPINE FUMARATE 100 MG TAB PO SCH (08:58)
[2020-10-13] MEDS: DIVALPROEX SODIUM 250 MG TAB...DR PO SCH ×2 (08:58→17:16)
[2020-10-13] MEDS: FUROSEMIDE INJ 10 MG/ML 4 ML VIAL IV SCH (08:58)
[2020-10-13] MEDS: LORATADINE 10 MG TAB PO SCH (08:58)
[2020-10-13] MEDS: PANTOPRAZOLE SOD 40 MG TABEC PO SCH (08:58)
[2020-10-13] MEDS: ACETAMINOPHEN/CODEINE 300MG - 30MG TAB PO PRN ×2 (09:12→17:17)
[2020-10-13] MEDS: INSULIN GLARGINE 100 UNITS/ML VIAL SQ SCH ×2 (12:07)
[2020-10-13] MEDS: BALSAM PERU/CASTOR OIL 60 GM OINT...G. TP SCH (12:48)
[2020-10-13] MEDS: MORPHINE SULFATE INJ 4 MG/ML INJ 1ML IV PRN ×2 (13:13→21:40)
[2020-10-13] MEDS: PROMETHAZINE 12.5MG/ NACL 0.9% 12.5 MG/50 ML BAG IV PRN ×2 (13:13→22:27)
[2020-10-13] MEDS: TRAZODONE HCL 50 MG TAB PO SCH (21:00)
[2020-10-13] MEDS: ATORVASTATIN 40 MG TAB PO SCH (21:00)
[2020-10-13] MEDS: PAROXETINE HCL 20 MG TAB PO SCH (21:00)
[2020-10-14] VITALS: BP 88/53
[2020-10-14] MEDS: PIPERACILLIN/TAZOBACTAM 3.375 GM in SODIUM CHLORIDE 0.9% 50ML 50 ML IV SCH ×3 (01:15→14:00)
[2020-10-14] MEDS: ALBUTEROL/IPRATROPIUM 3 ML NEB NEB SCH ×4 (03:55→15:00)
[2020-10-14 04:00] VITALS: BP 89/48
[2020-10-14] MEDS: ACETAMINOPHEN/CODEINE 300MG - 30MG TAB PO PRN (04:03)
[2020-10-14] MEDS: METHYLPREDNISOLONE SOD SUCC 40 MG/ML VIAL 1ML IV SCH (05:30)
[2020-10-14] MEDS: VILANTEROL INH SCH (05:30)
[2020-10-14] MEDS: METOPROLOL TARTRATE 25 MG TAB PO SCH ×2 (05:30→15:52)
[2020-10-14] MEDS: FLUTICASONE INH SCH (05:30)
[2020-10-14 08:36] VITALS: BP 123/106
[2020-10-14] MEDS: LORATADINE 10 MG TAB PO SCH (08:47)
[2020-10-14] MEDS: PANTOPRAZOLE SOD 40 MG TABEC PO SCH (08:47)
[2020-10-14] MEDS: QUETIAPINE FUMARATE 100 MG TAB PO SCH (08:47)
[2020-10-14] MEDS: FUROSEMIDE INJ 10 MG/ML 4 ML VIAL IV SCH (08:47)
[2020-10-14] MEDS: DIVALPROEX SODIUM 250 MG TAB...DR PO SCH (08:47)
[2020-10-14] MEDS: GABAPENTIN 300 MG CAP PO SCH (08:47)
[2020-10-14] MEDS: MORPHINE SULFATE INJ 4 MG/ML INJ 1ML IV PRN (08:56)
[2020-10-14] MEDS: INSULIN LISPRO 100 UNIT/1 ML 3ML VIAL SQ SCH ×3 (09:22→11:24)
[2020-10-14] MEDS: BALSAM PERU/CASTOR OIL 60 GM OINT...G. TP SCH (10:15)
[2020-10-14 11:17] VITALS: BP 123/106
[2020-10-14 11:54] VITALS: BP 83/59
[2020-10-14] MEDS: INSULIN GLARGINE 100 UNITS/ML VIAL SQ SCH ×2 (14:21)
[2020-10-14 16:02] VITALS: BP 85/52
== END 2020-10-14 18:06 | DRG 291 ==
LOC: ER 08:46 → ERHOLD 12:29 → MED/SURG2 12:33
PROVIDERS: ADMIT Internal Medicine; ATTEND Internal Medicine
PROC: 0DJ08ZZ Inspection of Upper Intestinal Tract, Via Natural or Artificial Opening Endoscopic (ICD-10-PCS; principal; 2020-10-09 12:13)
DX: I13.0 Hypertensive heart and chronic kidney disease with heart failure and stage 1 through stage 4 chronic kidney disease, or unspecified chronic kidney disease (principal); I50.23 Acute on chronic systolic (congestive) heart failure; K21.01 Gastro-esophageal reflux disease with esophagitis, with bleeding; J44.1 Chronic obstructive pulmonary disease with (acute) exacerbation; N17.9 Acute kidney failure, unspecified; N18.31 Chronic kidney disease, stage 3a; E11.22 Type 2 diabetes mellitus with diabetic chronic kidney disease; Z88.8 Allergy status to other drugs, medicaments and biological substances; Z91.048 Other nonmedicinal substance allergy status; I25.10 Atherosclerotic heart disease of native coronary artery without angina pectoris; G89.4 Chronic pain syndrome; Z87.891 Personal history of nicotine dependence; G40.909 Epilepsy, unspecified, not intractable, without status epilepticus; E11.42 Type 2 diabetes mellitus with diabetic polyneuropathy; Z20.822 Contact with and (suspected) exposure to COVID-19; Z79.4 Long term (current) use of insulin
CPT/HCPCS: 36415; 36600; 43235; 71045; 74176; 80048; 80053; 81001; 82550; 82553; 82607; 82728; 82948; 83540; 83605; 83735; 83880; 84466; 84484; 85025; 85610; 85730; 87040; 93005; 93306; 94640; 97139; 99251; 99285; J0610; J1815; J1817; J1940; J2001; J2270; J2353; J2543; J2550; J2920; J7050; J7799; U0002